=== PATIENT | female | born 1935 | race Caucasian/White ===

== ENCOUNTER 2017-04-30 13:22 | Inpatient (IN) | payer MEDICARE ==
[2017-04-30 14:15] LABS: BASOPHILS 0.2 % (0-2); EOSINOPHILS 0.4 % (0-7); HEMATOCRIT 41.8 % (36.0-48.0); HEMOGLOBIN 13.9 g/dL (12-16); IMMATURE GRANULOCYTES 0.2 % (0-5); LYMPHOCYTES 10.9 % (15-50); MCH 31.8 pg (26.0-34.0); MCHC 33.3 g/dL (31.0-37.0); MCV 95.7 fL (80.0-100.0); MEAN PLATELET VOLUME 9.9 fL (7.4-10.4); NEUTROPHILS 82.3 % (40-80); PLATELET COUNT 242 10x3/uL (130-400); RBC 4.37 10x6/uL (4.00-5.40); RDW 12.9 % (11.5-14.5); WBC 8.1 10x3/uL (4.8-10.8)
[2017-04-30 14:24] LABS: APTT 32.3 SECONDS (22.8-39.4); INR 1.03 (0.85-1.17); PROTIME 13.4 SECONDS (11.6-15.0)
[2017-04-30 14:28] LABS: ALBUMIN 3.5 g/dL (3.4-5.0); ANION GAP 14.9 mmol/L (8-16); BILIRUBIN - TOTAL 0.44 mg/dL (0.2-1.3); CALCIUM 8.8 mg/dL (8.5-10.1); CARBON DIOXIDE 25.8 mmol/L (21.0-32.0); CREATININE - SERUM 0.8 mg/dL (0.6-1.3); POTASSIUM - SERUM 3.7 mmol/L (3.5-5.1); PROTEIN - SERUM 6.8 g/dL (6.4-8.2)
[2017-04-30 15:34] LABS: APPEARANCE CLEAR (CLEAR); BILIRUBIN NEGATIVE (NEGATIVE); COLOR YELLOW (YELLOW); GLUCOSE NEGATIVE (NEGATIVE); KETONE MODERATE mg/dL (NEGATIVE); NITRITE NEGATIVE (NEGATIVE); PROTEIN NEGATIVE (NEGATIVE); UROBILINOGEN NORMAL (NORMAL)
--- NOTE | 2017-04-30 16:00 | NUR ---
TO ROOM 2209 FROM ER VIA STRETCHER.PT WITHOUT DISTRESS.FALL PREVENTION INITIATED,WITH BED ALARM ON AND WORKING.CALL LIGHT IN REACH.DOOR OPEN
--- NOTE | 2017-04-30 16:00 | NUR ---
PATIENT RECEIVED TO FLOOR FROM ER VIA STRETCHER. A/O X4. NO SIGNS OF DISTRESS NOTED. TRANSFERRED TO BED AND POSITIONED FOR COMFORT. ORIENTED TO ROOM. SIDE RAILS UP X2. BED IN LOW POSITION. CALL LIGHT IN REACH. BED ALARM ON. FAMILY PRESENT.
[2017-04-30 16:20] VITALS: BP 167/82
[2017-04-30 17:55] VITALS: BP 167/82; BMI 19.7
[2017-04-30] MEDS ORDERED: PLAVIX75 MG PO (18:30)
[2017-04-30] MEDS ORDERED: LISINOPRIL-HCTZ1 TA2 PO (18:30)
--- NOTE | 2017-04-30 19:25 | NUR ---
PATIENT RESTING IN BED WITH FAMILY AT BEDSIDE. BED IN LOWEST POSITION AND CALL LIGHT WITHIN REACH. ENCOURAGED THE PT TO CALL IF SHE HAS NEEDS.
[2017-04-30 20:00] VITALS: BP 163/83
[2017-05-01] VITALS: BP 167/78
[2017-05-01 04:00] VITALS: BP 170/80
[2017-05-01 08:30] VITALS: BP 187/97
--- NOTE | 2017-05-01 09:05 | NUR ---
REPORT RECEIVED FROM CARLO TAY.
--- NOTE | 2017-05-01 09:40 | NUR ---
ASSESSMENT COMPLETED. ALARM ON. CONSENTS SIGNED AND WITNESSED. CALL LIGHT IN REACH. WILL CONTINUE WITH PLAN OF CARE.
--- NOTE | 2017-05-01 11:16 | NUR ---
PREOP MEDS ADMINISTERED PER ORDER. CALL LIGHT IN REACH.
[2017-05-01 12:12] VITALS: BP 175/69
--- NOTE | 2017-05-01 13:40 | NUR ---
IN OR AT THIS TIME.
[2017-05-01 15:05] VITALS: BP 141/88
--- NOTE | 2017-05-01 15:05 | NUR ---
BACK IN ROOM FROM RECOVERY VIA BED. INCREASED BP. NO PAIN AT THIS TIME. CALL LIGHT IN REACH.
--- NOTE | 2017-05-01 17:00 | NUR ---
IS GIVEN TO PATIENT AND EXPLAINED USE WITH RETURN DEMONSTRATION. SON AT BEDSIDE. CALL LIGHT IN REACH.
--- NOTE | 2017-05-01 18:02 | NUR ---
MORPHINE 2 MG SIVP. SON AT BEDSIDE. BED ALARM ON. CALL LIGHT IN REACH. WILL CONTINUE WITH PLAN OF CARE
[2017-05-02] VITALS: BP 134/74
--- NOTE | 2017-05-02 02:13 | NUR ---
IV WAS BEEPING. PT WOKE UP AND TRIED TO GET OUT OF BED. HIP INCISION BLEEDING. REMOVED SATURATED DRESSING AND APPLIED 4X4'S AND MEPILEX BORDER DRESSING. CHANGED BEDDING AND GOWN. APPLIED NEW LEADS ON TELEMETRY AND DELEON STABILIZER. DELEON CARE DONE. NO OTHER NEEDS. GAVE CALL LIGHT AND REMINDED PT TO CALL FOR ASSISTANCE AND NOT TO GET OUT OF BED. NO OTHER NEEDS. BED LOW. BED ALARM ON.
[2017-05-02 04:00] VITALS: BP 133/64
[2017-05-02 05:09] LABS: BASOPHILS 0 % (0-2); EOSINOPHILS 0 % (0-7); HEMOGLOBIN 10.7 g/dL (12-16); IMMATURE GRANULOCYTES 0.1 % (0-5); LYMPHOCYTES 6.6 % (15-50); MCH 32.1 pg (26.0-34.0); MCHC 34.5 g/dL (31.0-37.0); MEAN PLATELET VOLUME 10.1 fL (7.4-10.4); MONOCYTES 16.8 % (2-11); NEUTROPHILS 76.5 % (40-80); PLATELET COUNT 227 10x3/uL (130-400); RBC 3.33 10x6/uL (4.00-5.40); WBC 8.8 10x3/uL (4.8-10.8)
[2017-05-02 05:10] LABS: MCV 93.1 fL (80.0-100.0)
[2017-05-02 05:17] LABS: ANION GAP 14.1 mmol/L (8-16); CALCIUM 8.2 mg/dL (8.5-10.1); CARBON DIOXIDE 23.9 mmol/L (21.0-32.0); CREATININE - SERUM 0.8 mg/dL (0.6-1.3)
[2017-05-02 07:58] VITALS: BP 132/63
--- NOTE | 2017-05-02 08:30 | NUR ---
AWAKE AND ALERT. ORIENTED X3. NO C/O THIS AM. LUNGS ARE CLEAR BILATERALLY, NO COUGH NOTED. SKIN IS INTACT WITHOUT REDNESS EXCEPT INCISION TO RIGHT HIP WHICH HAS A DRESSING IN PLACE WITH SOME LEAKAGE NOTED OF DARK BLOOD. IV TO LEFT FOREARM IS PATNET WITHOUT REDNESS AT ISNERTION SITE. DENIES NEEDS. DELEON PATENT WITH CLEAR YELLOW URINE. SCD'S IN PLACE.
--- NOTE | 2017-05-02 09:38 | CN ---
PATIENT NAME:GISEL ANGELES MEDICAL RECORD: [id number] : 33 LOCATION:D.[facility] ADMIT DATE: 04/30/17 ACCOUNT: [id number] CONSULTING PHYSICIAN: MATILDA MARTINEZ DO REFERRING PHYSICIAN: SHAHRZAD STOREY MD LEXI DATE OF CONSULTATION: 05/01/2017 HISTORY OF PRESENT ILLNESS: An 82-year-old female. The patient tripped on a curb and fell, had a right femoral neck fracture, is admitted to Dr. Storey. Consult for medical management, hypertension. PAST MEDICAL HISTORY: Significant for CVA, hypertension, coronary artery disease. ALLERGIES: No known drug allergies. The patient has not been seen in the clinic in over a year and a half. She is followed by cardiology, Dr. De Santiago. CURRENT MEDICATIONS: Plavix 75 mg daily, lisinopril/hydrochlorothiazide 10/12.5 one daily. Limited historian due to her past CVA and also is hard of hearing, wears hearing aids. REVIEW OF SYSTEMS: GENERAL: Denies any acute change in weight or appetite. HEENT: Denies cephalgia, visual changes, tinnitus, epistaxis, or dysphagia. CARDIOVASCULAR: Denies chest pain. Denies palpitations. She had an evaluation with Dr. De Santiago in January of this year with no reported abnormalities. PULMONARY: Denies hemoptysis. Denies night sweats. GASTROINTESTINAL: Denies hematemesis, hematochezia, or melena. GENITOURINARY: Denies dysuria. MUSCULOSKELETAL: No acute changes. ENDOCRINE: Denies polyuria, polydipsia, or polyphagia. PHYSICAL EXAMINATION: VITAL SIGNS: Temp 97.9, blood pressure 187/97, heart rate 89, respirations 17, and O2 sats 93% room air. GENERAL: Alert, oriented to person, pain right lower extremity. HEENT: Head is normocephalic, atraumatic. Slight facial droop consistent with remote cerebrovascular accident. Eyes: Pupils equal, round, and reactive. Ears: Canals patent. Nose: Nares patent. Throat: No erythema, no exudates. NECK: Supple. No lymphadenopathy, no JVD. HEART: Regular rate and rhythm. LUNGS: Clear to auscultation bilaterally. Breathing is nonlabored. ABDOMEN: Soft, nontender. Bowel sounds all 4 quadrants. EXTREMITIES: Present times 4, no edema. SKIN: Warm and dry. No rash. MUSCULOSKELETAL: Right femur tenderness. NEUROLOGIC: No appreciable new deficits. LABORATORY DATA AND DIAGNOSTIC STUDIES: X-ray of the right hip 2 views, displaced fracture, right femoral neck. Chest x-ray; emphysematous changes, no acute changes seen. Urinalysis; yellow, clear, specific gravity 1.01, moderate CONSULT REPORT [id number] GISEL ANGELESs. CBC: White count 8.1, hemoglobin 13.9, hematocrit 41.8, platelets 242. PT is 13.4 and INR is 1.03. Sodium 135, potassium 3.7, chloride 98, bicarbonate 25.8, BUN 12, creatinine 0.8. LFTs normal. EKG: Sinus rhythm, rate of 83, nonspecific T-wave changes. Do not have a current EKG for comparison. ASSESSMENT AND PLAN: 1. Right femoral neck fracture, surgery pending. 2. Hypertension. Recommend IV Vasotec until the patient is cleared to resume her medications. 3. Remote cerebrovascular accident. 4. History of coronary artery disease. Resume antiplatelet therapy when cleared by surgery. Supportive care. Thank you for this consult. We will follow accordingly. TRANSINT:[id number] Voice Confirmation ID: [id number] DOCUMENT ID: [id number] MATILDA MARTINEZ DO at 0938 CC: [id number] DICTATION DATE: 05/01/17 1107 SPRAY BLENDER: 05/01/17 1624 ADM IN [facility] [address] [place] [address]
--- NOTE | 2017-05-02 10:00 | NUR ---
DRESSING TO RIGHT HIP SATUATED WITH BLOOD. CONTINOUS OOZE NOTED FROM MIDSECTION OF INCISION LINE. ICE PLACED TO AREA. WILL MONITOR.
--- NOTE | 2017-05-02 11:31 | NUR ---
Name: GISEL ANGELES Admission Status: ER Accout number: [id number] Admission Date: 04-30-2017 : 1933 Admission Diagnosis: Attending: SHAHRZAD STOREY Current LOS: 2 Anticipated DC Date: Planned Disposition: Home Primary Insurance: [employer] CHO[employer] PPO MCR [employer] Discharge Planning Comments: CM met with patient to assess discharge planning needs. Patient states that she is independent with her care at home, where she lives with her son Jose. I attempted to call Jose to get information, but did not get an answer, Patient denies using any DME or HH services, but will need a walker before she is discharged. She might also benefit for a long-term setting till she is strong enough to go home. CM will continue to follow and assist with discharge planning needs. PCP: Carina Jose (son) [phone] Dehydrogenation Converter Helper: Nicole Neff * Is the patient Alert and Oriented? Yes 0 * PCP Carina 0 * Preadmission Environment Home with Family 0 * ADLs Independent 0 * Equipment None 0 * List name and contact numbers for known caregivers / representatives who currently or will assist patient after discharge: Jose (son) [phone] * Additional services required to return to the preadmission environment? Yes 0 * Can the patient safely return to the preadmission environment? Yes 0 * Has this patient been hospitalized within the prior 30 days at any hospital? No
--- NOTE | 2017-05-02 11:45 | NUR ---
PT ATTEMPTED TO GET PATIENT UP TO CHAIR AT BEDSIDE. PATIENT BECAME UNRESPONSIVE. ASSISTED BACK TO BED, MAX. BP 158/80, 96% ON RA. RESPONDED IMMEDIATELY UPON RETURNING TO BED. NO RESIDUAL EFFECTS NOTED. WILL MONITOR.
[2017-05-02 12:07] VITALS: BP 117/55
[2017-05-02 12:58] VITALS: BMI 19.7
[2017-05-02 13:49] LABS: HEMATOCRIT 26.8 % (36.0-48.0); HEMOGLOBIN 9.2 g/dL (12-16); MCH 32.3 pg (26.0-34.0); MCHC 34.3 g/dL (31.0-37.0); MEAN PLATELET VOLUME 10.1 fL (7.4-10.4); RBC 2.85 10x6/uL (4.00-5.40); RDW 13.2 % (11.5-14.5); WBC 9.4 10x3/uL (4.8-10.8)
--- NOTE | 2017-05-02 14:00 | NUR ---
DRESSING CHANGED TO RIGHT HIP. LARGE VOLUMN OF BLOOD OUT. WILL CONTINUE TO MONITOR.
--- NOTE | 2017-05-02 14:42 | OP ---
PATIENT NAME: GISEL ANGELES MEDICAL RECORD: [id number] :33 LOCATION:D.MS [facility]209 ADMISSION DATE:04/30/17 SURGEON: SHAHRZAD STOREY MD DATE OF OPERATION: 05/01/2017 PREOPERATIVE DIAGNOSIS: Displaced right femoral neck fracture. PREOPERATIVE DIAGNOSIS: Displaced right femoral neck fracture. PROCEDURE: Bipolar endoprosthesis for displaced right femoral neck fracture. SURGEON: Shahrzad Storey MD ANESTHESIA: General. INTRAOPERATIVE COMPLICATIONS: None. SUMMARY OF PATHOLOGIC FINDINGS: The patient had displaced right femoral neck fracture consistent with the preoperative diagnosis. OPERATIVE SUMMARY IN DETAIL: After obtaining the appropriate preoperative orthopedic surgery consent as well as anesthetic consultation, evaluation and clearance, the patient was brought to the operating room and placed on the operating table in supine position. After general laryngeal mask airway was administered, the patient was placed in a left lateral decubitus position. All pressure points were well padded to include down leg peroneal pad as well as axillary roll. The patient was held firmly to the operating table using the vacuum pack suction system. Right lower extremity and hip were then prepped and draped in a routine sterile fashion. Curvilinear incision was made over the greater trochanter, taken down along the IT band, which was split in line with fibers of the IT band to reveal gluteus medius and minimus. These were retracted anteriorly and saved for later reapproximation. The hip capsule was cut in a T-type fashion and saved for later reapproximation. Femoral neck cut was made using the Accolade II femoral neck cutting guide. The femoral head was then extracted from the acetabulum. Acetabulum was cleared of all debris. Serial and sequential reaming and broaching were done for a size 5 Accolade II TMZF coated stem. This was put into place. Trials were undertaken with the head. It was thought that the -3 was the most appropriate. A -3 x 43 was then snapped into place and tamped into the Stevenson taper. The hip was reduced. Radiographs were taken that showed good position and placement of the components. Wound was copiously irrigated at this multiple points. Hip capsule was closed with #2 Ethibond. The gluteus medius minimus were reattached back to the greater trochanter in a transosseous fashion using #5 Ethibond. This was then followed by #2 Ethibond closure with the IT band and lastly #1 Vicryl was used for subcutaneous closure. This was followed by skin jen. Sterile dressings were applied. The patient was awakened, taken to recovery room in stable condition. All final needle, instrument and sponge counts were correct. TRANSINT:[id number] Voice Confirmation ID: [id number] DOCUMENT ID: [id number] OPERATIVE REPORT [id number] GISEL ANGELES MD, SHAHRZAD ELLIOTT at 1442 CC: [id number] DICTATION DATE: 05/01/17 1350 TROUBLE LOCATOR TEST DESK: 05/01/17 3184 ADM IN [facility] [address] [id number]
[2017-05-02 16:36] VITALS: BP 122/60
--- NOTE | 2017-05-02 17:00 | NUR ---
SUPPER SERVED IN ROOM. FEEDS SELF BUT ONLY AT ABOUT HALF. DENIES NEEDS. NO CHANGES NOTED.
[2017-05-02 20:00] VITALS: BP 102/51
--- NOTE | 2017-05-02 23:34 | NUR ---
1940) REC'D.IN BED FAMILY AT BEDSIDE.DRSG. DRY AND INTACT TO RIGHT HIP.FOOT WARM GOOD PULSE.REPOSITIONED PILLOW BETWEEN KNEES/FOOT. DELEON PATENT DRAINING YELLOW SLIGHTLY CLOUDY URINE.WILL CONTINUE TO MONITOR FOR ANY CHGES AND FOLLOW CURRENT PLAN OF CARE.
[2017-05-03] VITALS (19 sets, daily range): BP systolic 113–181; BP diastolic 49–76
[2017-05-03 04:16] LABS: BASOPHILS 0.1 % (0-2); EOSINOPHILS 0 % (0-7); HEMATOCRIT 21.5 % (36.0-48.0); IMMATURE GRANULOCYTES 0.2 % (0-5); MCH 32.2 pg (26.0-34.0); MCHC 34.9 g/dL (31.0-37.0); MCV 92.3 fL (80.0-100.0); MONOCYTES 18.9 % (2-11); NEUTROPHILS 69.8 % (40-80); PLATELET COUNT 181 10x3/uL (130-400); RBC 2.33 10x6/uL (4.00-5.40); RDW 13.1 % (11.5-14.5); WBC 9.6 10x3/uL (4.8-10.8)
[2017-05-03 04:28] LABS: HEMOGLOBIN 7.5 g/dL (12-16)
[2017-05-03 04:32] LABS: ANION GAP 10.3 mmol/L (8-16); CALCIUM 7.9 mg/dL (8.5-10.1); CREATININE - SERUM 0.9 mg/dL (0.6-1.3); POTASSIUM - SERUM 4.3 mmol/L (3.5-5.1)
--- NOTE | 2017-05-03 07:47 | NUR ---
AWAKE AND ALERT. ORIENTED X3. DRESSING CHANGED TO RIGHT HIP, SLIGHT PRESSURE APPLIED TO AREA TO CONTAIN BLEEDING. LUNGS WITH CRACKLES NOTED. NO COUGH NOTED. SKIN IS INTACT WITHOUT REDNESS EXCEPT INCISION TO RIGHT HIP WHICH HAS A DRY INTACT DRESSING IN PLACE. SL TO LEFT FOREARM IS PATENT WITHOUT REDNESS AT INSERTION SITE. DELEON PATENT WITH CLEAR YELLOW URINE. AFTER RESETTLED IN BED BECAME UNRESPONSIVE WITH BLANK STARE. DR. MARTINEZ ARRIVED AT THIS TIME. WILL ORDER TRANSFUSION. BP WAS 181/69. PULSE 104. O2 SAT AT 98% O2 APPLIED PRECAUTION. WAS RESPONSIVE WITHIN 1 MINUTE OF INCIDENT. WILL MONITOR.
--- NOTE | 2017-05-03 08:01 | NUR ---
PLEASE DO CXR PORTABLE SINCE PT HAS A HIP FX
--- NOTE | 2017-05-03 08:01 | NUR ---
PLEASE DO THE CXR PORTABLE SINCE THE PT HAS A FEMORAL NECK FX
--- NOTE | 2017-05-03 10:22 | NUR ---
FIRST UNIT PRBC UP AT THIS TIME. VSS.
--- NOTE | 2017-05-03 10:35 | NUR ---
TRANSFUSION CONTINUES WITHOUT COMPLICATIONS. VSS.
--- NOTE | 2017-05-03 11:30 | NUR ---
TRANSFUSION CONTINUES WITHOUT DIFFICULTY. TEMP UP SLIGHTLY WILL MONITOR.
--- NOTE | 2017-05-03 12:15 | NUR ---
TRANSFUSION CONTINUES. TEMP IS GOING DOWN WITH SLOWER RATE OF INFUSION. WILL CONTINUE TO MONITOR.
--- NOTE | 2017-05-03 13:00 | NUR ---
TRANSFUSION COMPLETED WITHOUT DIFFICULTY. PROVENA WOUND VAC PLACED PER KRISTEL MATOS. DENIES NEEDS. ATE ALL OF LUNCH.
--- NOTE | 2017-05-03 13:08 | NUR ---
Wound care: As per Dr. Linda's orders applied a Prevena dressing to incision on right hip attached to Ulta vac pump. Dressing sealed immediately. Settings -125mmhg/mod/continuous Pt tolerated well. Will continue to monitor.
--- NOTE | 2017-05-03 13:15 | NUR ---
TRANSFUSION CONTINUES WITHOUT DIFFICULTY. VSS. TEMP REMAINS WNL. DENIES NEEDS.
--- NOTE | 2017-05-03 13:50 | NUR ---
SECOND UNIT OF PRBC UP AT THIS TIME. VSS.
--- NOTE | 2017-05-03 14:05 | NUR ---
TRANSFUSION CONTINUES WITHOUT COMPLICATIONS. VSS. RESTING QUIETLY INBED WITH EYES CLOSED.
--- NOTE | 2017-05-03 16:30 | NUR ---
TRANSFUSION COMPLETED WITHOUT COMPLICATIONS. VSS. KRISTEL HERE TO LOOK AT PROVENA TO MAKE SURE IT IS FUNCTIONAL.
--- NOTE | 2017-05-03 19:44 | NUR ---
DRSG. RIGHT HIP CONTINUES TO OOZE DK. RED BLOODY DRAINAGE.AWAITING PREVENA DRSG.TO ARRIVE.FOR DRSG. CHGE.FOOT PINK AND WARM PEDAL PULSE PRESENT. DENIES.DECREASE IN SENSATION/CALF PAIN OR TENDERNESS ON DORSIFLEXION.DELEON PATENT DRAINING SL. CLOUDY YELLOW URINE. WILL CONTINUE TO MONITOR FOR ANY CHGES. IN RESP.STATUS AND FOLLOW CURRENT PLAN OF CARE
[2017-05-04] VITALS (13 sets, daily range): BP systolic 106–139; BP diastolic 47–70
--- NOTE | 2017-05-04 00:42 | NUR ---
2015)DRSG. CHGED.CLEANED WITH WOUND CLEANSER PATTED DRY WITH 4X4"S.PREVERA DRSG.PLACED.WITH GOOD SEAL RECONNECTED TO WOUND VAC.CONSTANT TRICKLING OF DK. RED BLOODY DRAINAGE BETWEEN 9TH AND 10TH CLIP DISTAL END OF INCISION UP.REQUIRED ASSIST FROM CNC OPERATOR TRAY UNABLE TO KEEP PATIENT ON LEFT SIDE TO CHGE, DRSG.KEEPS PUSHING BACK PARTIAL BATH LINENS CHGED.PRIOR TO ASSIST FROM MALE CNC OPERATOR. GRAND DTR. STATES DOESN'T WANT MALES OF ANY SORT TAKING CARE OF HER GRANDD MOTHER.INSTRUCTED WILL REPORT TO CHARGE NURSE.
--- NOTE | 2017-05-04 04:57 | NUR ---
PATIENT RESTING WITH EYES CLOSED AND NO VISIBLE SIGNS IF DISTRESS. BED IN LOWEST POSITION, CALL LIGHT WITHIN REACH, AND BED ALARM ON.
[2017-05-04 05:07] LABS: BASOPHILS 0.1 % (0-2); EOSINOPHILS 0.5 % (0-7); HEMATOCRIT 23.3 % (36.0-48.0); HEMOGLOBIN 8.3 g/dL (12-16); IMMATURE GRANULOCYTES 0.4 % (0-5); MCH 29.9 pg (26.0-34.0); MCHC 35.6 g/dL (31.0-37.0); MEAN PLATELET VOLUME 10.5 fL (7.4-10.4); MONOCYTES 16.6 % (2-11); NEUTROPHILS 67.4 % (40-80); PLATELET COUNT 147 10x3/uL (130-400); RBC 2.78 10x6/uL (4.00-5.40); RDW 17.8 % (11.5-14.5)
[2017-05-04 05:08] LABS: MCV 83.8 fL (80.0-100.0)
[2017-05-04 05:24] LABS: CALCIUM 7.5 mg/dL (8.5-10.1); CARBON DIOXIDE 26.1 mmol/L (21.0-32.0); CREATININE - SERUM 0.8 mg/dL (0.6-1.3); POTASSIUM - SERUM 4.1 mmol/L (3.5-5.1)
--- NOTE | 2017-05-04 07:56 | NUR ---
LYING SUPINE WITH OXYGEN ON 2L VIA NC. DRESSING TO RIGHT HIP C/D/I. SCD'S AND BED ALARM ON. CALL LIGHT IN REACH AND IV SITE PATENT. WILL CONTINUE WITH PLAN OF CARE.
--- NOTE | 2017-05-04 09:31 | NUR ---
SCHEDULED MEDICATIONS ADMINISTERED AT THIS TIME WITHOUT DIFFICULTY. SITTING UPRIGHT IN BED EATING BREAKFAST AT THIS TIME. BED ALARM AND SCD'S ON. DRESSING TO RIGHT HIP C/D/I. CALL LIGHT IN REACH, WILL CONTINUE WITH PLAN OF CARE.
--- NOTE | 2017-05-04 09:48 | NUR ---
Prevena dressing was replaced by evening or night nurse supervisor nurse. The dressing is intact and holding its seal at -125mmhg as ordered. Dark red drainage is noted in the canister, but the dressing is not saturated. Wound care will continue to monitor.
--- NOTE | 2017-05-04 11:30 | NUR ---
PT TAKEN TO MRI AT THIS TIME.
--- NOTE | 2017-05-04 12:04 | NUR ---
PRE MEDICATIONS ADMINISTERED FOR ORDERED BLOOD TRANSFUSION PER ORDER.
--- NOTE | 2017-05-04 13:04 | NUR ---
spoke with patient's son Jose to discuss discharge planning. Son stated that she will need to go to rehab before coming home. I went over the choices and he picked the [facility] signed and placed in chart.
--- NOTE | 2017-05-04 13:20 | NUR ---
FIRST UNIT OF PRBC'S INTIATED PER ORDER AT THIS TIME.
--- NOTE | 2017-05-04 16:40 | NUR ---
FIRST UNIT OF PRBC COMPLETE WITH NO COMPLICATIONS AT THIS TIME.
--- NOTE | 2017-05-04 17:00 | NUR ---
IV TO RIGHT FOREARM D/C WITH CATH TIP INTACT DUE TO SWELLING. ICE PACK APPLIED TO RIGHT FOREARM AND ELEVATED ON PILLOW.
--- NOTE | 2017-05-04 17:50 | NUR ---
20MG OF LASIX ADMINISTERED PER ORDERS. SECOND UNIT OF BLOOD INITIATED AT THIS TIME.
--- NOTE | 2017-05-04 19:54 | NUR ---
REC'D. FAMILY AT BEDSIDE.BLOOD COMPLETE.DRSG. REMAINS DRY AND INTACT RIGHT HIP WITH GOOD SEAL.FOOT PINK/WARM GOOD RADIAL PULSE.WIGGLES TOES AND DORSIFLEXES ON COMMAND MORE ALERT THIS PM. WILL CONTINUE TO MONITOR FOR ANY CHGES. IN NEUROVASCULAR STATUS AND FOLLOW CURRENT PLAN OF CARE.
--- NOTE | 2017-05-05 01:14 | NUR ---
PATIENT RESTING QUIETLY WITH EYES CLOSED. NO SIGNS OF DISTRESS NOTED. BED IN LOWEST POSITION, CALL LIGHT IN REACH. BED RIALS UP X'S 2.
[2017-05-05 04:45] LABS: BASOPHILS 0.1 % (0-2); EOSINOPHILS 1.7 % (0-7); IMMATURE GRANULOCYTES 0.7 % (0-5); LYMPHOCYTES 14.9 % (15-50); MCH 30.7 pg (26.0-34.0); MCHC 35.6 g/dL (31.0-37.0); MONOCYTES 13.9 % (2-11); NEUTROPHILS 68.7 % (40-80); PLATELET COUNT 169 10x3/uL (130-400); RDW 15.6 % (11.5-14.5); WBC 8.9 10x3/uL (4.8-10.8)
[2017-05-05 04:49] LABS: HEMATOCRIT 33.4 % (36.0-48.0); HEMOGLOBIN 11.9 g/dL (12-16); MCV 86.1 fL (80.0-100.0); RBC 3.88 10x6/uL (4.00-5.40)
[2017-05-05 05:01] LABS: ANION GAP 11.5 mmol/L (8-16); CALCIUM 7.9 mg/dL (8.5-10.1); CARBON DIOXIDE 28.4 mmol/L (21.0-32.0); CREATININE - SERUM 0.9 mg/dL (0.6-1.3); POTASSIUM - SERUM 3.9 mmol/L (3.5-5.1)
--- NOTE | 2017-05-05 07:50 | NUR ---
LYING ON LEFT SIDE AT THIS TIME WITH RESPIRATIONS EVEN AND NON LABORED. OXYGEN ON 2L VIA NC. BED ALARM AND SCD'S ON. DELEON PATENT AND DRAINING TO GRAVITY. CALL LIGHT IN REACH AND DOOR OPEN. WILL CONTINUE WITH PLAN OF CARE.
[2017-05-05 08:00] VITALS: BP 168/72
--- NOTE | 2017-05-05 10:19 | NUR ---
REHAB PRESCREENING Rehab referral received and chart reviewed. Ms. Torres has [employer] insurance which will require a pre-autorization for Acute Inpatient Rehab. OT has been ordered but has not been completed. Rehab will continue to follow and will begin pre-authorization as soon as OT evaluation is entered. Thank you for this referral! Diane Aguilar, [facility] Rehab Signal Maintainer
[2017-05-05 12:08] VITALS: BP 140/57
--- NOTE | 2017-05-05 12:37 | NUR ---
NUTRITION F/U CHART REVIEWED. PT SLEEPING, DID NOT WAKEN.TOLERATING REG DIET WITH GOOD INTAKE MOST MEALS. NO BM RECORDED SINCE ADMIT. SPOKE WITH NURSING. RD FOLLOWING
--- NOTE | 2017-05-05 13:57 | EC ---
PATIENT:GISEL ANGELES DATE OF SERVICE: 04/30/17 SEX: F MEDICAL RECORD: [id number] DATE OF : 33 LOCATION:[facility] AGE OF PATIENT: 82 ADMISSION DATE: 04/30/17 REFERRING PHYSICIAN: INTERPRETING PHYSICIAN: NIKOLAY MCKENZIE MD ECHOCARDIOGRAM REPORT ECHO CHARGES 4 ECHO COMPLETE CLINICAL DIAGNOSIS: ACS ECHOCARDIOGRAPHIC MEASUREMENTS (adult normal given) AC root (d.<3.7cm) 3.1 cm LV Septum d (<1.2 cm> 1.0 cm Valve Excursion 1.8 cm LV Septum (systole) 1.4 cm Left Atria (s.<4.0cm> 2.8 cm LVPW d(<1.2cm) 0.9 cm RV (d.<2.3cm) 1.9 cm LVPW (sytole) 1.5 cm LV diastole(<5.6CM) 4.5 cm MV E-F(>70mm/sec) cm LV systole 2.7 cm LVOT Diameter 1.4 cm MV exc.(>10mm) cm Est.ejection fraction (50-75%) % Pericardial Effusion N DOPPLER: LVIT cm/sec A 145 cm/sec E 84.0 cm/sec LA cm/sec RVSP 49.0 mmHg LVOT 242 cm/sec AOP1/2T m/s Asc. Ao 281 cm/sec RVOT 149 cm/sec RA cm/sec PA 176 cm/sec AV Gradient Peak 32.0 mmHg AV Mean 18.0 mmHg AV Area 0.9 cm MV Gradient Peak 8.8 mmHg MV Mean 3.3 mmHg MV Area cm COMMENTS: Senior Corporate Recruiter: Jenny WILLETTOE Whip Operator: 3 Dr. Farfan TAPE# PACS DATE OF SERVICE: 05/04/2017 Adequate 2D echo, color flow and spectral Doppler, and M-mode. No LVH. LV internal dimension is normal. Wall motion is normal. EF is greater than or equal to 55%. Aortic valve sclerosis without stenosis by Doppler interrogation. The left atrium is normal at 2.8 cm. Mitral valve showed no prolapse. Trace MR. Right-sided chamber is grossly normal. Mild TR. TRANSINT:[id number] Voice Confirmation ID: [id number] DOCUMENT ID: [id number] ECHOCARDIOGRAM REPORT [id number] GISEL ANGELES Adina NIKOLAY MCKENZIE MD at 1357 CC: [id number] DICTATION DATE: 05/04/17 1256 CLOTH CARRIER: 05/04/17 1311 ADM IN [address] [place] [address]
--- NOTE | 2017-05-05 13:57 | CN ---
PATIENT NAME:GISEL TORRES MEDICAL RECORD: [id number] : 33 LOCATION:D.MS [facility] ADMIT DATE: 04/30/17 ACCOUNT: [id number] CONSULTING PHYSICIAN: NIKOLAY MCKENZIE MD REFERRING PHYSICIAN: SHAHRZAD STOREY MD DATE OF CONSULTATION: 05/03/2017 HISTORY OF PRESENT ILLNESS: Gisel Torres is an 82-year-old female followed by Dr. De Santiago in the clinic with a history of coronary artery disease, status post intervention. She actually saw Dr. De Santiago approximately a month ago, was angina free at that time. She has a history of hypertension, hyperlipidemia, had a fall at home, most history is gathered from the old chart and computer. The patient is hard of hearing. The patient has a history of CVA. She was found to be anemic and had some mental status changes, had elevated cardiac enzymes with elevated troponin. We are asked to see her concerning her cardiovascular status. PAST MEDICAL HISTORY: 1. History of hypertension. 2. Coronary artery disease. 3. Cerebrovascular accident disease, status post cerebrovascular accident. HOME MEDICATIONS: Typical home medications include Plavix 75 q. day, aspirin 81 q. day and lisinopril HCT 10/12.5 q. day. SOCIAL HISTORY: Unobtainable. REVIEW OF SYSTEMS: Unobtainable. ALLERGIES: None known. PHYSICAL EXAMINATION: GENERAL: Pleasant female, in no acute distress. VITAL SIGNS: Blood pressure 181/69, pulse 101 and regular. HEENT: Normocephalic and atraumatic. NECK: No bruits are noted. HEART: Regular, slightly tachy, II/ systolic ejection murmur. LUNGS: Actually fairly good air excursion. ABDOMEN: Soft and nontender. EXTREMITIES: Pulses are preserved, 1+ bilaterally. There is no edema. DIAGNOSTIC DATA: EKG shows normal sinus rhythm without significant ST-T changes. IMPRESSION: Elevated cardiac enzymes in the face hemoglobin 7.5, suspect demand ischemia, re-transfusion given in the perioperative period and previous history of coronary artery disease. We will place on empiric beta blockade as well and check her echocardiographic study to ensure that LV function has remained normal. TRANSINT:[id number] Voice Confirmation ID: [id number] DOCUMENT ID: [id number] CONSULT REPORT [id number] KARTHIKGISEL Adina NIKOLAY MCKENZIE MD at 1357 CC: [id number] DICTATION DATE: 05/03/17 1458 PHYSICAL SCIENTIST: 05/03/17 1626 ADM IN [address] [place] [address]
[2017-05-05 16:23] VITALS: BP 146/60
[2017-05-05 20:00] VITALS: BP 157/60
--- NOTE | 2017-05-05 20:20 | NUR ---
PT AWAKE/ALERT X4. ASSESSMENT COMPLETED AT THIS TIME PER FLOWSHEET. IV LEFT WRIST NS @50 PATENT. PROVERA WOUND VAC TO LEFT HIP DRESSING C/D/I. DELEON TO GRAVITY DRAINAGE. DENIES PAIN STATES "I ONLY NEED THE HOL[employer]IRIT FOR MY PAIN RELIEF." BED ALARM ON, CALL LIGHT IN REACH. WILL CONTINUE TO MONITOR.
--- NOTE | 2017-05-06 07:17 | NUR ---
AWAKE AND ALERT AT THIS TIME. POSITIONED UPRIGHT IN BED. SCD'S OFF PER PT REQUEST. BED ALARM ON AND CALL LIGHT IN REACH. DENIES PAIN AT THIS TIME. LEFT WRIST IV PATENT WITH NO S/S OF INFILTRATION PRESENT. OXYGENATION VIA ROOM AIR. CALL LIGHT IN REACH, WILL CONTINUE WITH PLAN OF CARE.
[2017-05-06 08:18] VITALS: BP 170/76
[2017-05-06] MEDS ORDERED: HCTZ25 MG PO (08:36)
[2017-05-06] MEDS ORDERED: HYDROCODONE-APA1 TAB PO (08:36)
[2017-05-06] MEDS ORDERED: LOPRESSOR25 MG PO (08:36)
[2017-05-06] MEDS ORDERED: ELIQUIS2.5 MG PO (08:36)
[2017-05-06] MEDS ORDERED: COLACE100 MG PO (08:37)
--- NOTE | 2017-05-06 10:10 | NUR ---
DELEON CATHETER D/C WITH CATH TIP INTACT. PT TOLERATED WITHOUT COMPLAINTS.
--- NOTE | 2017-05-06 11:20 | NUR ---
Rehab Note- received call from Deandra with [facility] and stated that there was an open and pending Auth for a SNF stay for [facility] and that it didn't appear the patient had a need for inpatient acute rehab and to proceed with the SNF PreAuth. Notified KELV[facility] of this message. Thank you for this referral! Dilia Rodriguez RN Clinical Liaison, [facility] Rehab
--- NOTE | 2017-05-06 11:30 | NUR ---
HAD SMALL, FORMED BOWEL MOVEMENT AT THIS TIME.
[2017-05-06 11:51] VITALS: BP 164/74
--- NOTE | 2017-05-06 13:50 | NUR ---
VOIDING ON THE BEDPAN WITHOUT DIFFICULTY.
--- NOTE | 2017-05-06 15:45 | NUR ---
PATIENT DISCHARING TODAY TO [facility] GRANDDAUGHTER AT BEDSIDE AND IS AWARE I ATTEMPTED TO CALL SON AND DID NOT GET AN ANSWER. IMM SERVED [facility] WILL SUPERINTENDENT FISH HATCHERY SHE IS GOING TO A SKILLED BED
--- NOTE | 2017-05-06 16:34 | NUR ---
PROVENA VAC APPLIED TO RIGHT HIP AND IV TO LEFT WRIST D/C WITH CATH TIP INTACT. REPORT CALLED TO [facility], , AND CALLED TO [facility]AR[facility]. SON AND GRANDDAUGHTER AT BEDSIDE. WILL AWAIT TRANSPORTATION.
[2017-05-06 17:33] VITALS: BP 141/58
--- NOTE | 2017-05-06 17:51 | NUR ---
DISCHARGED TO THE [facility] AT THIS TIME.
== END 2017-05-06 17:50 | DRG 470 ==
LOC: D.ER 13:22 → D.MS 14:59
PROVIDERS: Family Medicine; Nurse Practitioner Acute Care; ADMIT Orthopaedic Surgery
PROC: 0SRR0JZ Replacement of Right Hip Joint, Femoral Surface with Synthetic Substitute, Open Approach (ICD-10-PCS; principal; 2017-05-01 09:30)
DX: S72.001A Fracture of unspecified part of neck of right femur, initial encounter for closed fracture (principal); D62 Acute posthemorrhagic anemia; E87.1 Hypo-osmolality and hyponatremia; I10 Essential (primary) hypertension; W01.0XXA Fall on same level from slipping, tripping and stumbling without subsequent striking against object, initial encounter; Z86.73 Personal history of transient ischemic attack (TIA), and cerebral infarction without residual deficits; R41.82 Altered mental status, unspecified

== ENCOUNTER → 2018-05-03 12:37 | Outpatient (CLI) | payer MEDICARE ==
[~2018-05-03 12:37] MED LIST: COLACE100 MG PO; ELIQUIS2.5 MG PO; HCTZ25 MG PO; HYDROCODONE-APA1 TAB PO; LISINOPRIL-HCTZ1 TA2 PO; LOPRESSOR25 MG PO; PLAVIX75 MG PO
== END | disposition home or self-care (01) ==
LOC: D.US 12:37
DX: I73.9 Peripheral vascular disease, unspecified (principal)

== ENCOUNTER 2018-05-26 08:32 | Outpatient (CLI) | payer MEDICARE ==
[~2018-05-26] VITALS: Ht 162.6 cm; Wt 54.5 kg
--- NOTE | ~2018-05-26 | OP ---
PATIENT NAME: GISEL ANGELES MEDICAL RECORD: [id number] :33 LOCATION:D.CAT ADMISSION DATE: SURGEON: ADAMS RIBERA MD DATE OF OPERATION: 05/26/2018 PROCEDURES: 1. PTCA stent RCA. 2. Laser atherectomy RCA. 3. Left heart catheterization. 4. Selective coronary angiography. 5. Left ventriculogram. INDICATION: Angina and coronary artery disease. PROCEDURE IN DETAIL: After informed consent was obtained and after a detailed description of the risks, benefits as well as alternative therapies, the patient elected to proceed with angiogram and angioplasty. The right femoral area was prepped and draped in normal sterile fashion. Right femoral artery was cannulated via modified Seldinger technique with placement of 6-Korean sheath. All catheters exchanged through this sheath. FINDINGS: Left ventriculogram was performed in standard 30-degree MARCH view, reveals good cardiac wall motion throughout all segments. Overall ejection fraction estimated at 60%. SELECTIVE CORONARY ANGIOGRAPHY: 1. Left main has 90% stenosis. 2. The left anterior descending has previously placed stents with 95% to 99% in-stent restenosis. 3. Left circumflex has awln-pc-qdcomwiz irregularities, but no flow-limiting stenosis. 4. Right coronary has 95% stenosis in the mid vessel. PTCA STENT OF THE RCA: The lesion was extremely heavily calcified and very difficult to cross. We did use a laser atherectomy. We were then able to cross with a 3-0 balloon. We were able to place 2.25 x 12 [place] stent, post-stent dilatation with a 3-0 balloon to 21 atmospheres. OVERALL IMPRESSION: Successful PTCA stent of the RCA going from 95% initial stenosis to 0% residual. PLAN: For PTCA stent of the left main and LAD in the near future. TRANSINT:[id number] Voice Confirmation ID: [id number] DOCUMENT ID: [id number] ADAMS RIBERA MD at 1031 CC: [id number] DICTATION DATE: 05/26/18 1154 RISK AND INSURANCE MANAGER: 05/26/18 1436 DEP CLI 05/26/18 [place] [address]
--- NOTE | ~2018-05-26 | OP ---
PATIENT NAME: GISEL ANGELES MEDICAL RECORD: [id number] :33 LOCATION:D.CAT ADMISSION DATE: SURGEON: ADAMS RIBERA MD DATE OF OPERATION: 05/26/2018 PROCEDURES: 1. Aortofemoral runoff. 2. Abdominal aortography. INDICATION: Claudication and peripheral vascular disease. PROCEDURE IN DETAIL: After informed consent was obtained and after a detailed description of the risks, benefits as well as alternative therapies, the patient elected to proceed with angiogram and angioplasty. The right femoral area had a preexisting sheath from cardiac intervention. All catheters exchanged through this sheath. FINDINGS: Abdominal aortography was performed. The catheter was pulled down for aortofemoral runoff. Abdominal aortography reveals no significant abdominal aortic disease, no dissection or aneurysm formation. RIGHT LEG: A. Iliac: The common internal and external iliacs are calcified with only mild irregularities, but no flow-limiting stenosis. B. Femoral system: The common and deep femoral are widely patent. Superficial femoral has multiple areas of 80% stenosis throughout the mid distal portion of the vessel. C. Popliteal and infrapopliteal vessels. Popliteal vessel does have a 70% to 80% stenosis in its mid vessel. After this, there is severe diffuse disease of the infrapopliteal vessels. There is somewhat of 2-vessel runoff through the posterior tibial and peroneal. LEFT LEG: A. Iliac: The common internal and external iliacs have mild irregularities, but no flow-limiting stenosis. B. Femoral system: The common and deep femoral are widely patent. Superficial femoral has a total occlusion in the mid distal vessel. This is approximately 100 mm total occlusion. The vessel reconstitutes via collaterals at the level of the mid popliteal. C. Popliteal appears to be patent. After this, there does appear to be 2-vessel runoff to the posterior tibial and peroneal. OVERALL IMPRESSION: 1. 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 2. Multiple areas of 70% to 80% stenosis of the distal SFA and popliteal on the right that are amenable to transcatheter revascularization. TRANSINT:[id number] Voice Confirmation ID: [id number] DOCUMENT ID: [id number] OPERATIVE REPORT [id number] GISEL ANGELES JEFFREY MD at 1031 CC: [id number] DICTATION DATE: 05/26/18 1154 ASSEMBLER FOR PULLER OVER HAND: 05/26/18 1436 DEP CLI 05/26/18 [place] [address] [place] [id number]
--- NOTE | ~2018-05-26 | HEMODYNAMI ---
PATIENT:GISEL ANGELES MEDICAL RECORD: [id number] : 31 LOCATION:D.CAT ADMISSION DATE: 05/26/18 Generatedon:05/26/201811:38 Patient name: GISEL ANGELES Patient #: [id number] SSN: : 1 Date of study: 05/26/2018 Page: Of Hemodynamic Procedure Report Patient Data Patient Demographics Procedure consent was obtained First Name: GISEL Gender: Female Last Name: KARTHIK : 1935 Middle Initial: A Age: 83 year(s) Patient #: [id number] Race: Unknown Additional ID: [id number] Contact details [address]: [address] [place] [address] State: [place] City: [place] Zip code: [address] Past Medical History Allergies: No known allergies Admission Admission Data Admission Date: 05/26/2018 Admission Time: 8:32 Admit Source: Other Procedure Procedure Types Cath Procedure Diagnostic Procedure LHC LHC w/Coronaries Sedation Charges Moderate Sedation up to 45 minutes PCI Procedure Coronary Atherectomy Atherectomy w/PTCA Coronary Initial Peripheral Cath Diagnostic Procedure Grinder Machine Setter Peripheral Procedures Jevrj-Atkjcgq-Pjx-Off Procedure Description Procedure Date Procedure Date: 05/26/2018 Procedure Start Time: 10:41 Procedure End Time: 11:36 Procedure Staff Name Function Santino De Santiago MD Performing Physician Yessenia Gomez RT Monitor Cristian Kiser RT Scrub Radha Joel RN Nurse Fer Woods RN Network Support Technician Procedure Data Cath Procedure Fluoroscopy Diagnostic fluoroscopy Total fluoroscopy Time: time: 15.2 min 15.2 min Diagnostic fluoroscopy Total fluoroscopy dose: 588 dose: 588 mGy mGy Contrast Material Contrast Material Type Amount (ml) Isovue 300 193 Entry Location Entry Primary Successful Side Size Upsize Upsize Entry Closure Succes sful Closure Location (Fr) 1 (Fr) 2 (Fr) Remarks Device Remarks Femoral Right 5 Fr 6 Fr Exoseal artery Short Estimated blood loss: 10 ml Diagnostic catheters Device Type Used For End Catheter Placement MULTIPACK Pigtail 5 Fr Procedure catheter MULTIPACK JL 4.0 5Fr Procedure catheter MULTIPACK 3DRC 5Fr Procedure catheter Procedure Complications No complications Procedure Medications Medication Administration Route Dosage 0.9% NaCl I.V. 100 ml/hr Oxygen etCO2 Nasal cannula 2 l/min Lidocaine 2% added to field 20 Heparin Flush Bag added to field 2 bags (1000units/500ml NS) Versed I.V. 2 mg Fentanyl I.V. 50 mcg Versed I.V. 1 mg Fentanyl I.V. 25 mcg Heparin Bolus I.V. 5000 units Integrilin (Bolus I.V. 5 ml 2mg/ml) Versed I.V. 1 mg Plavix P.O. 600 mg Fentanyl I.V. 25 mcg Nitro [place] S.L. 400 Hemodynamics Rest Heart Rate: 61 (bpm) Snapshots Pre Cath Intra NCS Post Cath Vital Signs Time Heart Resp SPO2 etCO2 NIBP (mmHg) Rhythm Pain Sedation Rate (ipm) (%) (mmHg) Status Level (bpm) 10:20:19 75 12 100 26.5 144/71(117) NSR 0 (11) 10(A) , No pain 10:25:32 61 12 100 21.9 160/78(128) NSR 0 (11) 10(A) , No pain 10:29:50 59 10 100 22.6 158/72(103) NSR 0 (11) 10(A) , No pain 10:35:14 64 11 100 12.1 162/76(118) NSR 0 (11) 10(A) , No pain 10:39:34 61 10 100 12.8 143/70(117) NSR 0 (11) 10(A) , No pain 10:43:46 62 10 100 10.6 145/70(113) NSR 0 (11) 10(A) , No pain 10:47:56 70 11 100 14.3 162/79(124) NSR 0 (11) 10(A) , No pain 10:52:14 68 11 100 15 153/76(112) NSR 0 (11) 10(A) , No pain 10:56:28 69 12 100 18.1 163/75(108) NSR 0 (11) 10(A) , No pain 11:01:45 73 10 100 24.2 165/91(118) NSR 0 (11) 9(A) , No pain 11:07:05 76 15 100 31 199/99(139) NSR 0 (11) 9(A) , No pain 11:11:29 77 10 100 19.6 194/100(153) NSR 0 (11) 9(A) , No pain 11:16:44 75 11 100 34.8 187/107(129) NSR 0 (11) 9(A) , No pain 11:21:04 70 10 100 29.5 186/104(143) NSR 0 (11) 9(A) , No pain 11:25:25 72 10 100 36.3 171/97(115) NSR 0 (11) 9(A) , No pain 11:29:39 75 12 99 32.5 162/94(148) NSR 0 (11) 10(A) , No pain 11:33:51 76 13 99 34 170/102(148) NSR 0 (11) 10(A) , No pain Medications Time Medication Route Dose Verified Delivered Reason Notes Effectiveness by by 10:16:16 0.9% NaCl I.V. 100 Santino Radha used for ml/hr Jonnathan Joel steam blocker 10:19:16 Oxygen etCO2 2 Santino Radha used for Nasal l/min Jonnathan Joel procedure cannula RN 10:19:22 Lidocaine 2% added 20ml Santino Santino for local to vial Jonnathan De Santiago MD anesthetic field 10:19:27 Heparin Flush added 2 Santino Santino used for Bag to bags Jonnathan De Santiago MD procedure (1000units/500ml field NS) 10:28:49 Versed I.V. 2 mg Santino Radha for sedation Jonnathan Joel RN 10:28:54 Fentanyl I.V. 50 Santino Radha for sedation mcg Jonnathan Joel RN 10:33:23 Versed I.V. 1 mg Santino Radha for sedation Jonnathan Joel RN 10:40:05 Fentanyl I.V. 25 Santino Radha for sedation mcg Jonnathan Joel RN 10:49:22 Heparin Bolus I.V. 5000 Santino Radha for verif ied units Jonnathan Joel anticoagulation with Dr. CARLO De Santiago 10:51:33 Integrilin I.V. 5 ml Santino Radha for waste d (Bolus 2mg/ml) Jonnathan Joel anticoagulation 5mL RN 10:56:33 Versed I.V. 1 mg Santino Garcia for sedation Jonnathan Joel RN 10:56:42 Plavix P.O. 600 Santino Garcia for mg Jonnathan Joel antiplatelet RN therapy 11:07:25 Fentanyl I.V. 25 Santino Garcia for sedation mcg Jonnathan Joel RN 11:13:49 Nitro [place] S.L. 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 Start room use. 10:12:58 Time tracking: Regular hours (M-F 7:00 - 5:00) 10:13:02 Plan of Care:Hemodynamics will remain stable., Cardiac rhythm will remain stable., Comfort level will be maintained., Respiratory function will remain adequate., Patient/ family verbilizes understanding of procedure., Procedure tolerated without complication., Recovers from procedure without complications.. 10:13:28 H&P Date Dictated: 05/23/2018 Within 30 days and on chart., H&P Addendum completed by physician on day of procedure. (MUST COMPLETE FOR ALL OUTPATIENTS). 10:16:16 0.9% NaCl 100 ml/hr I.V. was administered by Radha Joel RN; used for procedure; 10:19:07 Vital chart was started 10:19:16 Oxygen 2 l/min etCO2 Nasal cannula was administered by Radha Joel RN; used for procedure; 10:19:22 Lidocaine 2% 20ml vial added to field was administered by Santino De Santiago MD; for local anesthetic; 10:19:27 Heparin Flush Bag (1000units/500ml NS) 2 bags added to field was administered by Santino De Santiago MD; used for procedure; 10:27:05 Patient received from Pre/Post Procedure Room to CCL 1 Alert and oriented. Tansferred to table in Supine position. 10:27:06 Warm blankets applied, and trino hugger turned on for patient comfort. 10:27:06 Correct patient and procedure confirmed by team. 10:27:11 Baseline sample Acquired. 10:27:15 Rhythm: sinus rhythm 10::17 Full Disclosure recording started 10::18 Pre-procedure instructions explained to patient. 10::19 Pre-op teaching completed and patient verbalized understanding. 10::24 Family in patients room. 10::25 Patient NPO since Midnight. 10:27:30 Patient allergic to No known allergies 10:27:33 Is patient on blood thinner?No 10:27:34 Patient diabetic? No. 10::42 Previous problem with sedation/anesthesia? No ? 10:27:44 Snore? No 10:27:45 Sleep apnea? No 10:27:46 Deviated septum? No 10::47 Opens mouth fully? Yes 10::48 Sticks out tongue? Yes 10::49 Airway obstruction? No ? 10::50 Dentures? No ? 10:27:55 Pre procedure: right dorsailis pedis pulse 1+ Palpable, but thready & weak; easily obliterated 10:27:57 Pre procedure: left dorsailis pedis pulse 1+ Palpable, but thready & weak; easily obliterated 10:27:59 Patient pain scale 0/10 ?. 10:28:03 IV patent on arrival in left hand with 0.9% NaCl at [facility]. 10:28:06 Lab results completed and on chart. 10:28:08 Bilateral groins area was prepped with chlora-prep and draped in sterile fashion 10:28:09 Alarms reviewed by R. N. 10:28:09 Sharps counted by scrub and verified by R.N. 10:28:10 --------ALL STOP TIME OUT------ 10:28:10 Final Timeout: patient, procedure, and site verified with staff and physician. All members of the team are in agreement. 10:28:12 Bilateral groins site verified by team. 10:28:14 Physical assessment completed. ASA score P 2 - A patient with mild systemic disease as per Santino De Santiago MD. 10::17 Sedation plan: IV Moderate Sedation Medication:Versed, Fentanyl 10::49 Versed 2 mg I.V. was administered by Radha Joel RN; for sedation; 10::54 Fentanyl 50 mcg I.V. was administered by Radha Wisam RN; for sedation; 10:31:31 Use device set Femoral Dx 10:31:32 ACIST Syringe (98642) opened to sterile field. 10:31:32 Bag Decanter (2002S) opened to sterile field. 10:31:34 ACIST Hand Control (22706) opened to sterile field. 10:31:34 ACIST Manifold (52059) opened to sterile field. 10:31:35 Tegaderm 4 x 4 (1626W) opened to sterile field. 10:31:36 Medline Cath Pack ([id number]) opened to sterile field. 10:31:37 DIAGNOSTIC WIRE .035 260cm J wire (538067) opened to sterile field. 10:31:37 DIAGNOSTIC Multipack 5Fr catheter set (JL6021) opened to sterile field. 10:31:47 SHEATH 5FR Organ (ZWQ059) opened to sterile field. 10:33:23 Versed 1 mg I.V. was administered by Radha Joel RN; for sedation; 10:40:05 Fentanyl 25 mcg I.V. was administered by Radha Joel RN; for sedation; 10:41:10 Zero performed for pressure channel P1 10:41:20 Procedure started. 10:41:34 Local anesthetic to right femoral artery with Lidocaine 2% by Santino De Santiago MD.INITIAL ACCESS ONLY 10:41:54 A 5 Fr sheath was inserted into the Right Femoral artery 10:42:33 A MULTIPACK Pigtail 5 Fr catheter was advanced over the wire and used for Procedure. 10:42:38 LV gram done using MARCH 10:42:40 Injector settings: Ml/sec: 1, Volume: 20, 10:43:05 EF : 60 % 10:43:14 pigtail pulled down for afro 10:43:26 Abdominal angiogram w/ runoff was performed. 10:43:37 Left leg runoff performed. 10:43:53 Right leg runoff performed. 10:44:00 Catheter removed. 10:44:37 A MULTIPACK JL 4.0 5Fr catheter was advanced over the wire and used for Procedure. 10:45:28 LCA angiography performed. 10:46:00 Catheter removed. 10:46:16 A MULTIPACK 3DRC 5Fr catheter was advanced over the wire and used for Procedure. 10:47:03 RCA angiography performed. 10:47:14 Catheter removed. 10:49:07 SHEATH 6FR Organ (JYE382) opened to sterile field. 10:49:22 Heparin Bolus 5000 units I.V. was administered by Radha Joel RN; for anticoagulation; verified with Dr. De Santiago 10:49:24 Sheath upsized to a 6 Fr Short. 10:49:56 GUIDE 6FR AR 1.0 SH catheter ([id number]) opened to sterile field. 10:50:03 6 Fr AR 1 SH guide catheter was inserted over the wire 10:50:11 CHOICE PT Extra Support 182cm wire ([id number]) opened to sterile field. 10:50:51 UNABLE TO ENGAGE 10:51:29 Guide catheter removed. 10:51:33 Integrilin (Bolus 2mg/ml) 5 ml I.V. was administered by Radha Joel RN; for anticoagulation; wasted 5mL 10:51:33 GUIDE 6FR HS II SH catheter ([id number]) opened to sterile field. 10:51:44 6 Fr HS 2 SH guide catheter was inserted over the wire 10:52:16 CHOICE ES 182 wire advanced. 10:53:30 Inflate balloon Inflation number: 1 A EUPHORA 3.0 x 15 Balloon ([id number]) was prepped and advanced across the Mid RCA, then inflated to 13 MABLE for 0:10 (min:sec). 10:53:43 Wire removed. 10:55:23 The TIFFANY RX 3.0 x 22 stent ([id number]) was advanced then removed because of failure to cross lesion 10:56:33 Versed 1 mg I.V. was administered by Radha Joel RN; for sedation; 10:56:42 Plavix 600 mg P.O. was administered by Radha Joel RN; for antiplatelet therapy; 10:56:42 Inflate balloon Inflation number: 2 A EUPHORA 3.0 x 20 Balloon ([id number]) was prepped and advanced across the Mid RCA, then inflated to 13 MABLE for 0:10 (min:sec). 10:57:02 Inflation number: 3 The EUPHORA 3.0 x 20 Balloon ([id number]) was reinflated across the Mid RCA, to 17 MABLE for 0:10 (min:sec). 10:57:27 Inflation number: 4 The EUPHORA 3.0 x 20 Balloon ([id number]) was reinflated across the Mid RCA, to 21 MABLE for 0:10 (min:sec). 10:58:02 Inflation number: 5 The EUPHORA 3.0 x 20 Balloon ([id number]) was reinflated across the Mid RCA, to 21 MABLE for 0:10 (min:sec). 10:58:15 Balloon removed over the wire. 11:01:09 Inflate balloon Inflation number: 6 A WOLVERINE Rx 2.5 x 10 cutting balloon ([id number]) was prepped and advanced across the Mid RCA, then inflated to 13 MABLE for 0:00 (min:sec). 11:02:47 Inflation number: 7 The WOLVERINE Rx 2.5 x 10 cutting balloon ([id number]) was reinflated across the Mid RCA, to 13 MABLE for 0:00 (min:sec). 11:04:02 Balloon removed over the wire. 11:07:25 Fentanyl 25 mcg I.V. was administered by Radha Joel RN; for sedation; 11:07:43 WARMING LASER 11:07:47 LASER ELCA 0.9 Rx atherectomy catheter (715365) opened to sterile field. 11:13:24 LASER CATHETER ADVANACED TO RCA 11:13:49 Nitro [place] 400 mcg x 3 S.L. was administered by Radha Joel RN; for hypertension; 11:13:50 UNABLE ABLE TO PASS MID RCA. CATHETER REMOVED 11:14:30 Inflation number: 8 The EUPHORA 3.0 x 20 Balloon ([id number]) was reinflated across the Mid RCA, to 17 MABLE for 0:10 (min:sec). 11:14:43 Inflation number: 9 The EUPHORA 3.0 x 20 Balloon ([id number]) was reinflated across the Mid RCA, to 17 MABLE for 0:10 (min:sec). 11:15:02 Inflation number: 10 The EUPHORA 3.0 x 20 Balloon ([id number]) was reinflated across the Mid RCA, to 17 MABLE for 0:10 (min:sec). 11:15:17 Balloon removed over the wire. 11:16:14 ELCA CATHETER ADVANCED 11:17:12 Laser pass to mRCA with Fluence of 80 and Rate of 80. 11:18:09 Laser catheter removed. 11:20:48 Inflate balloon Inflation number: 11 A NC EUPHORA 3.0 x 12 balloon ([id number]) was prepped and advanced across the Mid RCA, then inflated to 21 MABLE for 0:10 (min:sec). 11:21:44 Balloon removed over the wire. 11:22:55 CHOICE PT Extra Support 182cm wire (9998490P0) opened to sterile field. 11:23:23 CHOICE ES 182 ADVANCED A GEOVANY WIRE 11:24:22 GEOVANY WIRE USED TO ADVANCE STENT 11:24:40 WIRE REMOVED 11:24:41 Place stent Inflation Number: 12 A TIFFANY RX 2.25 x 12 stent ([id number]) was prepped and advanced across the Mid RCA. The stent was deployed at 23 MABLE for 0:10 (min:sec). 11:24:54 Stent catheter was removed intact over wire. 11:27:21 Wire removed. 11:27:21 Guide catheter removed. 11:27:32 EXOSEAL 6Fr (EX600) opened to sterile field. 11:27:49 INFLATOR Merit BasixCompak (AG2248) opened to sterile field. 11:28:04 Sheath removed intact; hemostasis achieved with Exoseal to the Right Femoral artery. 11:28:27 Procedure ended.(Physican Out) 11:29:07 Fluoroscopy time 15.20 minutes. 11:29:11 Fluoroscopy dose: 588 mGy 11:29:11 Flurop Dose total: 588 11:29:16 Contrast amount:Isovue 300 193ml. 11:29:33 Post-op/insertion site Right Femoral artery dressed using a 4 x 4 and Tegaderm. 11:29:37 Post right femoral artery:stable, soft, clean and dry 11:29:40 Post-procedure physical assessment completed. ASA score P 2 - A patient with mild systemic disease as per Santino De Santiago MD. 11:29:45 Post procedure rhythm: sinus rhythm 11:29:48 Estimated blood loss: 10 ml 11:29:50 Post procedure instruction explained to patient.Patient verbalizes understanding. 11:29:50 Patient needs reinforcement of post procedure teaching. 11:30:32 Procedure type changed to Cath procedure, Diagnostic procedure, LHC, LHC w/Coronaries, Sedation Charges, Moderate Sedation up to 45 minutes, PCI procedure, Coronary Atherectomy, Atherectomy w/PTCA Coronary Initial, Peripheral Cath Diagnostic Procedure, Grinder Machine Setter Peripheral Procedures, Quixb-Epoeqnw-Pyc-Off 11:36:35 Procedure and supply charges have been captured, reviewed, submitted and are correct. 11:36:38 Procedure Complication : No complications 11:36:39 Vital chart was stopped 11:36:40 See physician's report for complete and final results. 11:36:41 Report given to Pre/Post Procedure Room. 11:36:43 Patient transfered to Pre/Post Procedure Room with Bed. 11:36:45 Procedure ended. 11:36:45 Full Disclosure recording stopped 11:36:49 End room use (Document Last) 11:37:46 Laser total pulses delivered: 2263 11:37:51 Laser total treatment time: 0 minutes 28 seconds Intervention Summary Intervention Notes Time ActionType Lesion and Equipment Used Action# Pressure Duration Attributes 10:53:30 Inflate Mid RCA EUPHORA 3.0 x 1 13 00:10 balloon 15 Balloon ([id number]) 10:55:23 Discard TIFFANY RX 3.0 x Stent 22 stent ([id number]) 10:56:42 Inflate Mid RCA EUPHORA 3.0 x 2 13 00:10 balloon 20 Balloon ([id number]) 10:57:02 Reinflate Mid RCA EUPHORA 3.0 x 3 17 00:10 balloon 20 Balloon ([id number]) 10:57:27 Reinflate Mid RCA EUPHORA 3.0 x 4 21 00:10 balloon 20 Balloon ([id number]) 10:58:02 Reinflate Mid RCA EUPHORA 3.0 x 5 21 00:10 balloon 20 Balloon ([id number]) 11:01:09 Inflate Mid RCA WOLVERINE Rx 6 13 00:00 balloon 2.5 x 10 cutting balloon ([id number]) 11:02:47 Reinflate Mid RCA WOLVERINE Rx 7 13 00:00 balloon 2.5 x 10 cutting balloon ([id number]) 11:14:30 Reinflate Mid RCA EUPHORA 3.0 x 8 17 00:10 balloon 20 Balloon ([id number]) 11:14:43 Reinflate Mid RCA EUPHORA 3.0 x 9 17 00:10 balloon 20 Balloon ([id number]) 11:15:02 Reinflate Mid RCA EUPHORA 3.0 x 10 17 00:10 balloon 20 Balloon ([id number]) 11:20:48 Inflate Mid RCA NC EUPHORA 3.0 11 21 00:10 balloon x 12 balloon ([id number]) 11:24:41 Place stent Mid RCA TIFFANY RX 2.25 x 12 23 00:10 12 stent ([id number]) Device Usage Item Name Manufacture Quantity Catalog Number Hospital Part Current Minimal Lot# / Charge Number Stock Stock Serial# Code ACIST Syringe Acist 1 04119 676920 014951 280931 20 (98647) Medical Systems iPowow Bag Decanter Microtek 1 2001S 403209 26348 633046 5 (2001S) Medical Inc. ACIST Hand Acist 1 95821 341465 331493 654840 5 Control Medical (35317) Systems Inc ACIST Manifold Acist 1 83931 394757 100845 618689 5 (91910) Medical Systems Inc Tegaderm 4 x 4 3M 1 1626W 584499 958628 475452 5 (1626W) Medline Cath Medline 1 [id number] 926064 88687 020839 5 Pack ([id number]) DIAGNOSTIC St Sg 1 728049 168921 873640 394736 30 WIRE .035 260cm J wire (648284) DIAGNOSTIC Cardinal 1 RD6579 799446 17990 559853 30 Multipack 5Fr Health catheter set (HR5881) SHEATH 5FR Terumo 1 ZJF210 079894 714350 309149 40 Organ (TGX962) MULTIPACK Cardinal 1 805625 5 Pigtail 5 Fr Health catheter MULTIPACK JL Cardinal 1 200855 5 4.0 5Fr Health catheter MULTIPACK 3DRC Cardinal 1 010253 5 5Fr catheter Health SHEATH 6FR Terumo 1 NHN972 341737 625581 666262 40 Organ (AUD440) GUIDE 6FR AR Medtronic 1 [id number] 104672 02816 195154 1 1.0 SH catheter ([id number]) CHOICE PT [employer] 2 [id number] 160890 068137 782931 5 Extra Support Scientific 182cm wire ([id number]) GUIDE 6FR HS Medtronic 1 [id number] 448800 09101 989387 1 II SH catheter ([id number]) EUPHORA 3.0 x Medtronic 1 [id number] 959106 630585 661129 5 [id number] 15 Balloon ([id number]) TIFFANY RX 3.0 x Medtronic 1 [id number] 850676 7044270 474999 5 [id number] 22 stent ([id number]) EUPHORA 3.0 x Medtronic 1 [id number] 282329 506533 429473 5 [id number] 20 Balloon ([id number]) WOLVERINE Rx [employer] 1 [id number] 528738 0742610 168431 5 [id number] 2.5 x 10 Scientific cutting balloon ([id number]) LASER ELCA 0.9 Saleem 1 110-004 350397 538405 371718 5 Rx atherectomy Healthcare catheter (380094) (677447) NC EUPHORA 3.0 Medtronic 1 [id number] 423603 606961 838006 1 [id number] x 12 balloon ([id number]) TIFFANY RX 2.25 x Medtronic 1 [id number] 708006 4586155 885589 5 [id number] 12 stent ([id number]) EXOSEAL 6Fr Cardinal 1 EX600 664268 665588 761159 10 (EX600) Health INFLATOR Merit Merit 1 VJ8615 547849 824919 732164 15 [facility] ([id number]) Signature Audit [place] Stage Time Signature Unsigned Intra-Procedure 05/26/2018 Yessenia Gomez 11:38:18 AM RT(R) Signatures Monitor : Yessenia Gomez Signature : RT Date : Time : [place] [id number] [place] [address]
[2018-05-26] MEDS ORDERED: BAYER CHEWABLE81 MG PO ×2 (08:49→12:04)
[2018-05-26 09:10] VITALS: BP 158/69; Ht 162.6 cm; Wt 54.5 kg
[2018-05-26 09:24] LABS: BASOPHILS 0.1 % (0-2); EOSINOPHILS 0.4 % (0-7); HEMATOCRIT 41.5 % (36.0-48.0); HEMOGLOBIN 13.9 g/dL (12-16); IMMATURE GRANULOCYTES 0.1 % (0-5); LYMPHOCYTES 18.9 % (15-50); MCH 32.1 pg (26.0-34.0); MCHC 33.5 g/dL (31.0-37.0); MCV 95.8 fL (80.0-100.0); MEAN PLATELET VOLUME 10.3 fL (7.4-10.4); MONOCYTES 8.6 % (2-11); NEUTROPHILS 71.9 % (40-80); PLATELET COUNT 238 10x3/uL (130-400); RBC 4.33 10x6/uL (4.00-5.40); WBC 7.3 10x3/uL (4.8-10.8)
[2018-05-26 09:31] LABS: ANION GAP 13.1 mmol/L (8-16); CALCIUM 8.9 mg/dL (8.5-10.1); CARBON DIOXIDE 26.6 mmol/L (21.0-32.0); CREATININE - SERUM 1.1 mg/dL (0.6-1.3); POTASSIUM - SERUM 3.7 mmol/L (3.5-5.1)
[2018-05-26] MEDS ORDERED: PLAVIX75 MG PO (12:04)
== END 2018-05-26 15:40 | disposition home or self-care (01) ==
LOC: D.CATH 08:32
PROVIDERS: Internal Medicine Interventional Cardiology
DX: I25.119 Atherosclerotic heart disease of native coronary artery with unspecified angina pectoris (principal); T82.855A Stenosis of coronary artery stent, initial encounter; I70.213 Atherosclerosis of native arteries of extremities with intermittent claudication, bilateral legs; I70.92 Chronic total occlusion of artery of the extremities; Z01.812 Encounter for preprocedural laboratory examination

== ENCOUNTER 2018-06-12 09:01 | Outpatient (CLI) | payer MEDICARE ==
[~2018-06-12] VITALS: Ht 162.6 cm; Wt 54.5 kg
--- NOTE | ~2018-06-12 | OP ---
PATIENT NAME: GISEL ANGELES MEDICAL RECORD: [id number] :31 LOCATION:D.CAT ADMISSION DATE: SURGEON: ADAMS RIBERA MD DATE OF OPERATION: 06/12/2018 PROCEDURES: 1. PTCA stent LAD. 2. PTCA stent left main. 3. Selective coronary angiography. INDICATION: Angina and coronary artery disease. PROCEDURE IN DETAIL: After informed consent was obtained and after a detailed description of risks, benefits, as well as alternative therapies, the patient elected to proceed with angiogram and angioplasty. The right femoral area was prepped and draped in normal sterile fashion. Right femoral artery was cannulated via modified Seldinger technique with placement of 6-Cymraes sheath. All catheters exchanged through this sheath. FINDINGS: The left anterior descending is 99% stenosed. This has in-stent restenosis, this was addressed with a 2.5 x 26 mm Vince stent. Result was 0% residual stenosis. The left main is 80% to 90% stenosed. This was addressed with a 3.0 x 12 mm Vince stent taken to 17 atmospheres. Result was 0% residual stenosis. OVERALL IMPRESSION: Successful PTCA stent of the LAD and left main going from 90% to 95% initial stenosis to 0% residual. TRANSINT:[id number] Voice Confirmation ID: [id number] DOCUMENT ID: [id number] ADAMS RIBERA MD at 1704 CC: [id number] DICTATION DATE: 06/12/18 1034 FOREST BOTANY INSTRUCTOR: 06/12/18 1057 DEP CLI 06/12/18 [place] [id number] [place] [id number]
--- NOTE | ~2018-06-12 | HP ---
PATIENT: GISEL TORRES MEDICAL RECORD: [id number] ACCOUNT: [id number] LOCATION:RUBA : 31 ADMISSION DATE: 06/12/18 PCP: MATILDA MARTINEZ DO HISTORY AND PHYSICAL EXAMINATION DIAGNOSES: 1. Angina. 2. Coronary artery disease. 3. Recent percutaneous transluminal coronary angioplasty stent of the right coronary artery with concomitant disease of the left main and left anterior descending. HISTORY OF PRESENT ILLNESS: Ms. Torres presents with unstable anginal symptomatology, found to have critical disease of the left main, LAD, and RCA. Underwent successful PTCA stent of the RCA, is now brought back for PTCA stent of the left main and LAD. PHYSICAL EXAMINATION: GENERAL APPEARANCE: Well-nourished, well-developed, appears stated age. Level of distress, comfortable. PSYCHIATRIC: Mental status, alert, normal affect. Orientation, oriented to time, place and person. EYES: Lids and conjunctiva, noninjected. No discharge, no pallor. ENT: Lips, teeth, gums, normal dentition. Oropharynx, no cyanosis, no pallor. NECK: Carotid arteries, bilateral normal upstroke, no bruits, no thrills. JUGULAR VEINS: No jugular venous pressure or distention. CERVICAL LYMPH NODES: Nontender, nonenlarged. THYROID: Not enlarged. Nontender. No nodules. LUNGS: Respiratory effort, unlabored. CHEST: Normal curvature. No thoracic deformity. No chest wall tenderness. Percussion, resonant. Auscultation, clear. No wheezes, no rales, no rhonchi. CARDIOVASCULAR: Precordial exam, nondisplaced. No heaves or pericardial thrills. Rate and rhythm, regular. Heart sounds, normal S1, normal S2. No S3, no gallop, no rub. Systolic murmur, not heard. Diastolic murmur, not heard. EXTREMITIES: No cyanosis, no edema. Peripheral pulses, full and equal in all extremities, except as noted. No bruits appreciated. ABDOMEN: Soft, nondistended. Normal aorta. No bruit. Nontender. No masses. Liver, nontender, no hepatomegaly. Spleen, nontender, no splenomegaly. MUSCULOSKELETAL: No joint tenderness. No joint swelling. No erythema. NEUROLOGICAL: Normal gait, normal strength, normal tone. SKIN: Warm and dry. OVERALL IMPRESSION: Anginal symptomatology with significant disease on the left. We will proceed with percutaneous transluminal coronary angioplasty stent of the left system. TRANSINT:[id number] Voice Confirmation ID: [id number] DOCUMENT ID: [id number] HISTORY AND PHYSICAL [id number] GISEL TORRES JEFFREY MD at 1704 CC: [id number] DICTATION DATE: 06/12/18 1021 ENGINEERING OFFICER: 06/12/18 1036 DEP CLI 06/12/[address] [address]
--- NOTE | ~2018-06-12 | HEMODYNAMI ---
PATIENT:GISEL ANGELES MEDICAL RECORD: [id number] : 31 LOCATION:D.CAT ADMISSION DATE: 06/12/18 Generatedon:06/12/201810:39 Patient name: GISEL ANGELES Patient #: [id number] SSN: : 1 Date of study: 06/12/2018 Page: Of Hemodynamic Procedure Report Patient Data Patient Demographics Procedure consent was obtained First Name: GISEL Gender: Female Last Name: KARTHIK : 1935 Middle Initial: A Age: 83 year(s) Patient #: [id number] Race: Unknown Additional ID: [id number] Contact details Address: [address] [place] [address] State: [place] City: [place] Zip code: [address] Past Medical History Allergies: No known allergies Admission Admission Data Admission Date: 06/12/2018 Admission Time: 9:01 Lab Results Lab Result Date: 06/12/2018 Lab Result Time: 0:00 Biochemistry Name Units Result Min Max BUN mg/dl 31 --(----)-* 7 18 Creatinine mg/dl 1.2 --(---*)-- 0.6 1.3 CBC Name Units Result Min Max Hemoglobin g/dl 13.6 --(*---)-- 13.5 17.5 Procedure Procedure Types Cath Procedure Diagnostic Procedure Sedation Charges Moderate Sedation up to 15 minutes PCI Procedure Coronary Stent Coronary Stent Initial Coronary Stent Additional Procedure Description Procedure Date Procedure Date: 06/12/2018 Procedure Start Time: 10:25 Procedure End Time: 10:33 Procedure Staff Name Function Santino De Santiago MD Performing Physician Fer Woods RN Director Global Strategic Publisher Sales Yessenia Gomez RT Monitor Santi Milan RT Scrub Radha Joel RN Nurse Procedure Data Cath Procedure Fluoroscopy Diagnostic fluoroscopy Total fluoroscopy Time: 0 time: 0 min min Diagnostic fluoroscopy Total fluoroscopy dose: 74 dose: 74 mGy mGy Contrast Material Contrast Material Type Amount (ml) Isovue 300 51 Entry Location Entry Primary Successful Side Size Upsize Upsize Entry Closure Succes sful Closure Location (Fr) 1 (Fr) 2 (Fr) Remarks Device Remarks Femoral Right 6 Fr Exoseal artery Short Estimated blood loss: 10 ml Procedure Complications No complications Procedure Medications Medication Administration Route Dosage 0.9% NaCl I.V. 100 ml/hr Oxygen etCO2 Nasal cannula 2 l/min Lidocaine 2% added to field 20 Heparin Flush Bag added to field 2 bags (1000units/500ml NS) Versed I.V. 2 mg Fentanyl I.V. 50 mcg Heparin Bolus I.V. 4000 units Versed I.V. 1 mg Hemodynamics Rest HGB: 13.6 (g/dl) Heart Rate: 58 (bpm) Snapshots Pre Cath Intra NCS Post Cath Vital Signs Time Heart Resp SPO2 etCO2 NIBP (mmHg) Rhythm Pain Sedation Rate (ipm) (%) (mmHg) Status Level (bpm) 10:14:34 60 14 98 24 130/69(106) NSR 0 (11) 10(A) , No pain 10:18:41 60 13 100 27.1 137/74(109) NSR 0 (11) 10(A) , No pain 10:22:51 60 16 100 28.3 139/78(107) NSR 0 (11) 10(A) , No pain 10:28:09 63 14 100 21.1 166/72(142) NSR 0 (11) 9(A) , No pain 10:32:25 70 15 100 13.5 180/88(138) NSR 0 (11) 10(A) , No pain Medications Time Medication Route Dose Verified Delivered Reason Notes Effectiveness by by 10:12:45 0.9% NaCl I.V. 100 Santino Radha used for ml/hr Jonnathan Joel administrative underwriter 10:12:54 Oxygen etCO2 2 Santino Radha used for Nasal l/min Jonnathan Joel procedure cannula RN 10:12:59 Lidocaine 2% added 20ml Santino De for local to vial Jonnathan De Santiago MD anesthetic field 10:13:05 Heparin Flush added 2 Santino Santino used for Bag to bags Jonnathan De Santiago MD procedure (1000units/500ml field NS) 10:18:53 Versed I.V. 2 mg Santino Radha for sedation Jonnathan Joel RN 10:19:00 Fentanyl I.V. 50 Santino Radha for sedation mcg Jonnathan Joel RN 10:26:04 Heparin Bolus I.V. 4000 Santino Garcia for verif ied units Jonnathan Joel anticoagulation with Dr. CARLO De Santiago 10:26:25 Versed I.V. 1 mg Santino Garcia for sedation Jonnathan Joel RN Procedure Log Time Note 10:05:52 Fer Woods RN sent for patient. Start room use. 10:06:48 Signed procedure consent form obtained from patient. 10:06:51 Diagnostic Cath status Elective 10:06:52 Time tracking: Regular hours (M-F 7:00 - 5:00) 10:06:56 Plan of Care:Hemodynamics will remain stable., Cardiac rhythm will remain stable., Comfort level will be maintained., Respiratory function will remain adequate., Patient/ family verbilizes understanding of procedure., Procedure tolerated without complication., Recovers from procedure without complications.. 10:12:45 0.9% NaCl 100 ml/hr I.V. was administered by Radha Joel RN; used for procedure; 10:12:54 Oxygen 2 l/min etCO2 Nasal cannula was administered by Radha Joel RN; used for procedure; 10:12:59 Lidocaine 2% 20ml vial added to field was administered by Santino De Santiago MD; for local anesthetic; 10:13:05 Heparin Flush Bag (1000units/500ml NS) 2 bags added to field was administered by Santino De Santiago MD; used for procedure; 10:13:09 Vital chart was started 10:15:37 H&P Date Dictated: 06/12/2018 H&P Addendum completed by physician on day of procedure. (MUST COMPLETE FOR ALL OUTPATIENTS), New H&P dictated by physician.. 10:16:31 Patient received from Pre/Post Procedure Room to CCL 1 Alert and oriented. Tansferred to table in Supine position. 10:16:31 Warm blankets applied, and trino hugger turned on for patient comfort. 10:16:32 Correct patient and procedure confirmed by team. 10:16:32 ECG and BP/O2 sat monitors applied to patient. 10:16:33 Baseline sample Acquired. 10:16:36 Rhythm: sinus bradycardia 10:16:38 Full Disclosure recording started 10:16:42 Pre-procedure instructions explained to patient. 10:16:43 Pre-op teaching completed and patient verbalized understanding. 10:16:44 Family in patients room. 10:16:45 Patient NPO since Midnight. 10:16:52 Patient allergic to No known allergies 10:16:58 Is patient on blood thinner?Yes 10:17:00 ACC The patient was administered the following blood thiners within the last 24 hours: ACCPlavix 10:17:02 Patient diabetic? No. 10:17:10 Previous problem with sedation/anesthesia? No ? 10:17:12 Snore? Yes 10:17:18 Sleep apnea? No 10:17:20 Deviated septum? No 10:17:20 Opens mouth fully? Yes 10:17:22 Sticks out tongue? Yes 10:17:24 Airway obstruction? No ? 10:17:27 Dentures? No ? 10:17:31 Pre procedure: right dorsailis pedis pulse 1+ Palpable, but thready & weak; easily obliterated 10:17:34 Patient pain scale 0/10 ?. 10:17:37 IV patent on arrival in left hand with 0.9% NaCl at [facility]. 10:17:58 Lab Result : BUN 31 mg/dl 10:17:58 Lab Result : Creatinine 1.2 mg/dl 10:17:58 Lab Result : Hemoglobin 13.6 g/dl 10:18:01 Lab results completed and on chart. 10:18:04 Right groin area was prepped with chlora-prep and draped in sterile fashion 10:18:04 Alarms reviewed by R. N. 10:18:05 Sharps counted by scrub and verified by R.N. 10:18:06 --------ALL STOP TIME OUT------ 10:18:06 Final Timeout: patient, procedure, and site verified with staff and physician. All members of the team are in agreement. 10:18:07 Right groin site verified by team. 10:18:10 Physical assessment completed. ASA score P 2 - A patient with mild systemic disease as per Santino De Santiago MD. 10:18:13 Sedation plan: IV Moderate Sedation Medication:Versed, Fentanyl 10:18:53 Versed 2 mg I.V. was administered by Radha Joel RN; for sedation; 10:19:00 Fentanyl 50 mcg I.V. was administered by Radha Joel RN; for sedation; 10::53 Zero performed for pressure channel P1 10::27 Zero performed for pressure channel P1 10::32 Zero performed for pressure channel P1 10::51 Use device set CATH PACK 10:24:52 ACIST Syringe (76815) opened to sterile field. 10:24:53 ACIST Hand Control (44757) opened to sterile field. 10:24:53 ACIST Manifold (85817) opened to sterile field. 10:24:53 Medline Cath Pack (QIVC04756) opened to sterile field. 10:24:54 Bag Decanter (2002S) opened to sterile field. 10:24:54 DIAGNOSTIC WIRE .035 260cm J wire (161604) opened to sterile field. 10:25:16 SHEATH 6FR [place] (YSM712) opened to sterile field. 10:25:16 INFLATOR Merit BasixCompak (TQ1562) opened to sterile field. 10:25:16 CHOICE PT Extra Support 182cm wire ([id number]) opened to sterile field. 10:25:17 GUIDE 6FR EBU 3.0 SH catheter ([id number]) opened to sterile field. 10:25:23 Procedure started. 10:25:28 Local anesthetic to right femoral artery with Lidocaine 2% by Santino De Santiago MD.INITIAL ACCESS ONLY 10:25:35 A 6 Fr Short sheath was inserted into the Right Femoral artery 10:25:52 6 Fr EBU 3 SH guide catheter was inserted over the wire 10:26:04 Heparin Bolus 4000 units I.V. was administered by Radha Joel RN; for anticoagulation; verified with Dr. De Santiago 10:26:25 Versed 1 mg I.V. was administered by Radha Joel RN; for sedation; 10:26:27 CHOICE ES 182 wire advanced. 10:26:30 Wire advanced across lesion. 10:27:22 Inflate balloon Inflation number: 1 A EUPHORA 2.5 x 15 Balloon ([id number]) was prepped and advanced across the Mid LAD, then inflated to 17 MABLE for 0:10 (min:sec). 10:27:32 Inflation number: 2 The EUPHORA 2.5 x 15 Balloon ([id number]) was reinflated across the Mid LAD, to 17 MABLE for 0:10 (min:sec). 10:27:39 Balloon removed over the wire. 10:28:56 Place stent Inflation Number: 3 A TIFFANY RX 2.5 x 26 stent ([id number]) was prepped and advanced across the Mid LAD. The stent was deployed at 13 MABLE for 0:10 (min:sec). 10:29:00 Stent catheter was removed intact over wire. 10:30:17 Place stent Inflation Number: 1 A TIFFANY RX 3.0 x 12 stent ([id number]) was prepped and advanced across the LMCA. The stent was deployed at 17 MABLE for 0:10 (min:sec). 10:30:35 Stent catheter was removed intact over wire. 10:30:39 Wire removed. 10:30:41 Guide catheter removed. 10:30:52 EXOSEAL 6Fr (EX600) opened to sterile field. 10:31:02 Sheath removed intact; hemostasis achieved with Exoseal to the Right Femoral artery. 10:31:05 Procedure ended.(Physican Out) 10:31:45 Contrast amount:Isovue 300 51ml. 10:31:49 Fluoroscopy time 00.00 minutes. 10:31:52 Flurop Dose total: 74 10:31:52 Fluoroscopy dose: 74 mGy 10:31:54 Sharps counted by scrub and verified by R.N. 10:31:58 Post-op/insertion site Right Femoral artery dressed using a 4 x 4 and Tegaderm. 10:32:02 Post right femoral artery:stable, soft, clean and dry 10:32:05 Post-procedure physical assessment completed. ASA score P 2 - A patient with mild systemic disease as per Santino De Santiago MD. 10:32:08 Post procedure rhythm: sinus rhythm 10:32:10 Estimated blood loss: 10 ml 10:32:12 Post procedure instruction explained to patient.Patient verbalizes understanding. 10:32:12 Patient needs reinforcement of post procedure teaching. 10:32:34 Procedure type changed to Cath procedure, Diagnostic procedure, Sedation Charges, Moderate Sedation up to 15 minutes, PCI procedure, Coronary Stent, Coronary Stent Initial, Coronary Stent Additional 10:32:53 Procedure and supply charges have been captured, reviewed, submitted and are correct. 10:33:01 Procedure Complication : No complications 10:33:03 Vital chart was stopped 10:33:04 See physician's report for complete and final results. 10:33:05 Report given to Pre/Post Procedure Room. 10:33:07 Patient transfered to Pre/Post Procedure Room with Bed. 10:33:09 Procedure ended. 10:33:09 Full Disclosure recording stopped 10:33:14 End room use (Document Last) Intervention Summary Intervention Notes Time ActionType Lesion and Equipment Used Action# Pressure Duration Attributes 10:27:22 Inflate Mid LAD EUPHORA 2.5 x 1 17 00:10 balloon 15 Balloon ([id number]) 10:27:32 Reinflate Mid LAD EUPHORA 2.5 x 2 17 00:10 balloon 15 Balloon ([id number]) 10:28:56 Place stent Mid LAD TIFFANY RX 2.5 x 3 13 00:10 26 stent ([id number]) 10:30:17 Place stent LMCA TIFFANY RX 3.0 x 1 17 00:10 12 stent ([id number]) Device Usage Item Name Manufacture Quantity Catalog Number Hospital Part Current M inimal Lot# / Charge Number Stock Stock Serial# Code ACIST Syringe Acist 1 54666 069101 737004 600259 2 0 (11959) Medical Systems Inc ACIST Hand Acist 1 74050 191335 311035 115316 5 Control Medical (74119) Systems Inc ACIST Manifold Acist 1 97735 978723 709723 622028 5 (90981) Medical Systems Inc Medline Cath Medline 1 [id number] 257707 67768 385779 5 Pack ([id number]) Bag Decanter Microtek 1 2001S 056056 14169 183609 5 (2001S) Medical Inc. DIAGNOSTIC St Sg 1 466310 453572 945899 685520 3 0 WIRE .035 260cm J wire (990883) SHEATH 6FR Terumo 1 IMT820 364004 504413 457591 4 0 [place] (HPB780) INFLATOR Merit Merit 1 TD7560 310064 467618 188505 1 5 [employer] (SK6745) CHOICE PT [place] 1 [id number] 774480 867212 668676 5 Extra Support Scientific 182cm wire ([id number]) GUIDE 6FR EBU Medtronic 1 [id number] 549043 33976 957217 0 3.0 SH catheter ([id number]) EUPHORA 2.5 x Medtronic 1 [id number] 332878 298488 609564 5 [id number] 15 Balloon ([id number]) TIFFANY RX 2.5 x Medtronic 1 [id number] 306281 3641291 837355 5 [id number] 26 stent ([id number]) TIFFANY RX 3.0 x Medtronic 1 [id number] 537089 0306047 655066 5 [id number] 12 stent ([id number]) EXOSEAL 6Fr Cardinal 1 EX600 802311 433833 452052 1 0 (EX600) Health Signature Audit [place] Stage Time Signature Unsigned Intra-Procedure 06/12/2018 Yessenia Gomez 10:39:33 AM RT(R) Signatures Monitor : Yessenia Gomez Signature : RT Date : Time : [place] [address] [place] [address]
[~2018-06-12 09:01] MED LIST changes: +BAYER CHEWABLE81 MG PO
[2018-06-12 09:31] VITALS: BP 152/71; Ht 162.6 cm; Wt 54.5 kg
[2018-06-12 09:42] LABS: BASOPHILS 0.5 % (0-2); EOSINOPHILS 2.1 % (0-7); HEMATOCRIT 40.8 % (36.0-48.0); HEMOGLOBIN 13.6 g/dL (12-16); IMMATURE GRANULOCYTES 0.2 % (0-5); LYMPHOCYTES 17.8 % (15-50); MCH 32.1 pg (26.0-34.0); MCHC 33.3 g/dL (31.0-37.0); MCV 96.2 fL (80.0-100.0); MEAN PLATELET VOLUME 9.8 fL (7.4-10.4); MONOCYTES 10.7 % (2-11); NEUTROPHILS 68.7 % (40-80); RBC 4.24 10x6/uL (4.00-5.40); RDW 13.4 % (11.5-14.5); WBC 6.3 10x3/uL (4.8-10.8)
[2018-06-12 09:53] LABS: ANION GAP 11.6 mmol/L (8-16); CALCIUM 9.1 mg/dL (8.5-10.1); CREATININE - SERUM 1.2 mg/dL (0.6-1.3); POTASSIUM - SERUM 3.6 mmol/L (3.5-5.1)
[2018-06-12 09:54] LABS: PLATELET COUNT 322 10x3/uL (130-400)
== END 2018-06-12 15:10 | disposition home or self-care (01) ==
LOC: D.CATH 09:01
PROVIDERS: Internal Medicine Interventional Cardiology
DX: I25.119 Atherosclerotic heart disease of native coronary artery with unspecified angina pectoris (principal)
CPT/HCPCS: 93458; C9600 ×2

== ENCOUNTER 2018-06-26 09:51 | Outpatient (CLI) | payer MEDICARE ==
[~2018-06-26] VITALS: Ht 162.6 cm; Wt 53.6 kg
[2018-06-26] VITALS (17 sets, daily range): BP systolic 101–151; BP diastolic 54–78; Ht 162.6 cm; Wt 53.6 kg
--- NOTE | ~2018-06-26 | HP ---
PATIENT: GISEL TORRES MEDICAL RECORD: [id number] ACCOUNT: [id number] LOCATION:RUBA : 31 ADMISSION DATE: 06/26/18 PCP: MATILDA MARTINEZ DO HISTORY AND PHYSICAL EXAMINATION DIAGNOSES: 1. Claudication. 2. Peripheral vascular disease. 3. Coronary artery disease. 4. Hypertension. 5. Hyperlipidemia. HISTORY OF PRESENT ILLNESS: Mrs. Torres presents with claudication symptomatology. She recently underwent aortofemoral runoff revealing disease of the right lower extremity amenable to transcatheter revascularization. In the left lower extremity, she does have a long area of total occlusion of the SFA, this is questionable if this is amenable to transcatheter revascularization. PHYSICAL EXAMINATION: GENERAL APPEARANCE: Well-nourished, well-developed, appears stated age. Level of distress, comfortable. PSYCHIATRIC: Mental status, alert, normal affect. Orientation, oriented to time, place and person. EYES: Lids and conjunctiva, noninjected. No discharge, no pallor. ENT: Lips, teeth, gums, normal dentition. Oropharynx, no cyanosis, no pallor. NECK: Carotid arteries, bilateral normal upstroke, no bruits, no thrills. JUGULAR VEINS: No jugular venous pressure or distention. CERVICAL LYMPH NODES: Nontender, nonenlarged. THYROID: Not enlarged. Nontender. No nodules. LUNGS: Respiratory effort, unlabored. CHEST: Normal curvature. No thoracic deformity. No chest wall tenderness. Percussion, resonant. Auscultation, clear. No wheezes, no rales, no rhonchi. CARDIOVASCULAR: Precordial exam, nondisplaced. No heaves or pericardial thrills. Rate and rhythm, regular. Heart sounds, normal S1, normal S2. No S3, no gallop, no rub. Systolic murmur, not heard. Diastolic murmur, not heard. EXTREMITIES: No cyanosis, no edema. Peripheral pulses, full and equal in all extremities, except as noted. No bruits appreciated. ABDOMEN: Soft, nondistended. Normal aorta. No bruit. Nontender. No masses. Liver, nontender, no hepatomegaly. Spleen, nontender, no splenomegaly. MUSCULOSKELETAL: No joint tenderness. No joint swelling. No erythema. NEUROLOGICAL: Normal gait, normal strength, normal tone. SKIN: Warm and dry. OVERALL IMPRESSION: Claudication, we will proceed with transcatheter revascularization of the right leg. TRANSINT:[id number] Voice Confirmation ID: [id number] DOCUMENT ID: [id number] HISTORY AND PHYSICAL [id number] GISEL TORRES JEFFREY MD at 1108 CC: [id number] DICTATION DATE: 06/26/18920 SENIOR ART DIRECTOR: 06/26/18939 [facility] [address] [place] [id number]
--- NOTE | ~2018-06-26 | OP ---
PATIENT NAME: GISEL ANGELES MEDICAL RECORD: [id number] :31 LOCATION:D.CAT ADMISSION DATE: SURGEON: ADAMS RIBERA MD DATE OF OPERATION: 06/26/2018 PROCEDURES: 1. Stent placement, popliteal right. 2. SHORTS SIFTER, popliteal right. 3. Unilateral extremity angiography. INDICATION: Claudication and peripheral vascular disease. PROCEDURE IN DETAIL: After informed consent was obtained and after a detailed description of the risks, benefits as well as alternative therapies, the patient elected to proceed with angiogram and angioplasty. The left femoral area was prepped and draped in normal sterile fashion. Left femoral artery was cannulated via modified Seldinger technique with placement of a 6-Swedish ftqszv-aqd-ctor sheath. All catheters exchanged through this sheath. FINDINGS: The popliteal on the right is 90% blocked up. This was addressed with a 5.0 balloon yielding suboptimal result with severe intimal dissection. Stenting was undertaken with a 5 x 80 Cordis SMART stent. Result was 0% residual. IMPRESSION: Successful SHORTS SIFTER stent of the right popliteal going from 90% initial stenosis to 0% residual. TRANSINT:[id number] Voice Confirmation ID: [id number] DOCUMENT ID: [id number] ADAMS RIBERA MD at 1228 CC: [id number] DICTATION DATE: 06/26/18 1229 ASSISTANT CENTER DIRECTOR: 06/26/18 1302 DEP CLI 06/27/[address] [address]
--- NOTE | ~2018-06-26 | HEMODYNAMI ---
PATIENT:GISEL ANGELES MEDICAL RECORD: [id number] : 31 LOCATION:D.CAT ADMISSION DATE: 06/26/18 Generatedon:06/26/201812:36 Patient name: GISEL ANGELES Patient #: [id number] SSN: : 1 Date of study: 06/26/2018 Page: Of Hemodynamic Procedure Report Patient Data Patient Demographics Procedure consent was obtained First Name: GISEL Gender: Female Last Name: KARTHIK : 1935 Middle Initial: A Age: 83 year(s) Patient #: [id number] Race: Unknown Additional ID: [id number] Contact details [address]: [address] [place] [address] State: [place] City: [place] Zip code: [address] Past Medical History Allergies: No known allergies Admission Admission Data Admission Date: 06/26/2018 Admission Time: 9:51 Admit Source: Other Lab Results Lab Result Date: 06/26/2018 Lab Result Time: 0:00 Biochemistry Name Units Result Min Max BUN mg/dl 45 --(----)-* 7 18 Creatinine mg/dl 1 --(--*-)-- 0.6 1.3 CBC Name Units Result Min Max Hemoglobin g/dl 13.4 -*(----)-- 13.5 17.5 Procedure Procedure Types Cath Procedure Peripheral vascular Intervention Angioplasty Angioplasty Fem/Pop Procedure Description Procedure Date Procedure Date: 06/26/2018 Procedure Start Time: 12:13 Procedure End Time: 12:29 Procedure Staff Name Function Santino De Santiago MD Performing Physician Santi Milan RT Monitor Radha Joel RN Nurse Esa Stark RT Scrub Procedure Data Cath Procedure Fluoroscopy Diagnostic fluoroscopy Total fluoroscopy Time: 4.3 time: 4.3 min min Diagnostic fluoroscopy Total fluoroscopy dose: 34 dose: 34 mGy mGy Contrast Material Contrast Material Type Amount (ml) Isovue 300 41 Entry Location Entry Primary Successful Side Size Upsize Upsize Entry Closure Succes sful Closure Location (Fr) 1 (Fr) 2 (Fr) Remarks Device Remarks Femoral Left 6 Fr 6 Fr Exoseal artery Short Long Diagnostic catheters Device Type Used For End Catheter Placement DIAGNOSTIC IMT 5Fr Catheter ([id number]) Procedure Complications No complications Procedure Medications Medication Administration Route Dosage 0.9% NaCl I.V. 100 ml/hr Oxygen etCO2 Nasal cannula 2 l/min Lidocaine 2% added to field 20 Heparin Flush Bag added to field 2 bags (1000units/500ml NS) Versed I.V. 2 mg Fentanyl I.V. 50 mcg Versed I.V. 2 mg Fentanyl I.V. 50 mcg Heparin Bolus I.V. 4000 units Hemodynamics Rest HGB: 13.4 (g/dl) Heart Rate: 62 (bpm) Snapshots Pre Cath Intra NCS Post Cath Vital Signs Time Heart Resp SPO2 etCO2 NIBP (mmHg) Rhythm Pain Sedation Rate (ipm) (%) (mmHg) Status Level (bpm) 11:55:13 58 17 100 22.7 178/79(141) NSR 0 (11) 10(A) , No pain 11:59:16 64 16 100 26.5 161/76(120) NSR 0 (11) 10(A) , No pain 12:03:22 68 16 100 32.5 166/76(101) NSR 0 (11) 10(A) , No pain 12:07:32 58 13 100 34.8 153/74(121) NSR 0 (11) 10(A) , No pain 12:11:42 61 14 100 31.8 158/73(128) NSR 0 (11) 10(A) , No pain 12:15:56 62 13 100 32.6 143/69(117) NSR 0 (11) 10(A) , No pain 12:20:02 67 16 100 31.3 153/77(121) NSR 0 (11) 10(A) , No pain 12:24:12 68 15 100 34.6 141/74(110) NSR 0 (11) 10(A) , No pain 12:28:22 67 8 100 9 141/72(117) NSR 0 (11) 10(A) , No pain Medications Time Medication Route Dose Verified Delivered Reason Notes Effectiveness by by 11:58:39 0.9% NaCl I.V. 100 Santino Garcia used for ml/hr Jonnathan Joel mobile home set up person 11:58:46 Oxygen etCO2 2 Santino Radha used for Nasal l/min Jonnathan Joel procedure cannula RN 11:58:52 Lidocaine 2% added 20ml Santino Santino for local to vial Jonnathan De Santiago MD anesthetic field 11:58:57 Heparin Flush added 2 Santino Santino used for Bag to bags Jonnathan De Santiago MD procedure (1000units/500ml field NS) 12:11:16 Versed I.V. 2 mg Santino Radha for sedation Jonnathan Jole RN 12:11:22 Fentanyl I.V. 50 Santino Radha for sedation mcg Jonnathan Joel RN 12:17:25 Versed I.V. 2 mg Santino Radha for sedation Jonnathan Joel RN 12:17:29 Fentanyl I.V. 50 Santino Radha for sedation mcg Jonnathan Joel RN 12:17:30 Heparin Bolus I.V. 4000 Santino Radha for verif ied units Jonnathan Joel anticoagulation with Dr. CARLO De Santiago Procedure Log Time Note 11:45:22 Admit Source: Other 11:45:50 Diagnostic Cath status Elective 11:45:52 Esa Stark RT(R) sent for patient. Start room use. 11:45:53 Time tracking: Regular hours (M-F 7:00 - 5:00) 11:45:59 Plan of Care:Hemodynamics will remain stable., Cardiac rhythm will remain stable., Comfort level will be maintained., Respiratory function will remain adequate., Patient/ family verbilizes understanding of procedure., Procedure tolerated without complication., Recovers from procedure without complications.. 11:46:05 Patient received from Pre/Post Procedure Room to CCL 1 Alert and oriented. Tansferred to table in Supine position. 11:46:06 Warm blankets applied, and trino hugger turned on for patient comfort. 11:46:07 Correct patient and procedure confirmed by team. 11:46:08 Signed procedure consent form obtained from patient. 11:46:09 ECG and BP/O2 sat monitors applied to patient. 11:53:39 Vital chart was started 11:56:53 Baseline sample Acquired. 11:56:56 Rhythm: sinus rhythm 11:56:57 Full Disclosure recording started 11:58:32 H&P Date Dictated: 06/26/2018 Within 30 days and on chart.. 11:58:34 Pre-procedure instructions explained to patient. 11:58:35 Pre-op teaching completed and patient verbalized understanding. 11:58:39 0.9% NaCl 100 ml/hr I.V. was administered by Radha Joel RN; used for procedure; 11:58:42 Family in waiting room. 11:58:46 Oxygen 2 l/min etCO2 Nasal cannula was administered by Radha Joel RN; used for procedure; 11:58:52 Lidocaine 2% 20ml vial added to field was administered by Santino De Santiago MD; for local anesthetic; 11:58:57 Heparin Flush Bag (1000units/500ml NS) 2 bags added to field was administered by Santino De Santiago MD; used for procedure; 12:00:25 Patient NPO since Midnight. 12:00:34 Patient allergic to No known allergies 12:00:37 Is the patient allergic to Iodine/contrast media? No. 12:00:46 Is patient on blood thinner?No 12:01:08 Patient diabetic? No. 12:02:10 ----Pre-sedation anethsthesia assessment.---- 12:02:13 Previous problem with sedation/anesthesia? No ? 12:02:15 Snore? Yes 12:02:16 Sleep apnea? No 12:02:18 Deviated septum? No 12:02:20 Opens mouth fully? Yes 12:02:21 Sticks out tongue? Yes 12:02:23 Airway obstruction? No ? 12:02:25 Dentures? No ? 12:02:27 Pre procedure: right dorsailis pedis pulse 1+ Palpable, but thready & weak; easily obliterated 12:02:30 Patient pain scale 0/10 ?. 12:02:51 IV patent on arrival in left antecubital with 0.9% NaCl at 10ml/hr. 12:04:33 Lab Result : BUN 45 mg/dl 12:04:34 Lab Result : Hemoglobin 13.4 g/dl 12:04:34 Lab Result : Creatinine 1 mg/dl 12:06:25 SHEATH 6FR Destination (RSR01) opened to sterile field. 12:07:24 GLIDE WIRE Super Stiff Angled 260cm ([id number]) opened to sterile field. 12:07:29 Lab results completed and on chart. 12:07:35 Bilateral groins area was prepped with chlora-prep and draped in sterile fashion 12:07:36 Alarms reviewed by R. N. 12:07:37 Sharps counted by scrub and verified by R.N. 12:07:40 Physician paged 12:09:19 ACIST Syringe (92040) opened to sterile field. 12:09:20 Bag Decanter (2002S) opened to sterile field. 12:09:20 Medline Cath Pack ([id number]) opened to sterile field. 12:09:21 DIAGNOSTIC WIRE .035 260cm J wire (667845) opened to sterile field. 12:09:22 ACIST Hand Control (41695) opened to sterile field. 12:09:23 ACIST Manifold (16679) opened to sterile field. 12:09:25 Tegaderm 4 x 4 (1626W) opened to sterile field. 12:09:40 INFLATOR Merit BasixCompak (MS9914) opened to sterile field. 12::57 --------ALL STOP TIME OUT------ 12::57 Final Timeout: patient, procedure, and site verified with staff and physician. All members of the team are in agreement. 12:09:59 Bilateral groins site verified by team. 12:10:01 Physical assessment completed. ASA score P 2 - A patient with mild systemic disease as per Santino De Santiago MD. 12:10:05 Sedation plan: IV Moderate Sedation Medication:Versed, Fentanyl 12:11:16 Versed 2 mg I.V. was administered by Radha Joel RN; for sedation; ::22 Fentanyl 50 mcg I.V. was administered by Radha Joel RN; for sedation; 12:13:09 Procedure started. 12:13:23 Local anesthetic to left femerol artery with Lidocaine 2% by Santino De Santiago MD.INITIAL ACCESS ONLY 12:13:32 A 6 Fr Short sheath was inserted into the Left Femoral artery 12:13:40 A DIAGNOSTIC IMT 5Fr Catheter ([id number]) was advanced over the wire and used for . 12:13:49 GLIDEWIRE wire advanced. 12:13:51 Sheath upsized to a 6 Fr Long. 12:16:40 Procedure type changed to Cath procedure, Peripheral vascular Intervention, Angioplasty, Angioplasty Fem/Pop 12:17:25 Versed 2 mg I.V. was administered by Radha Joel RN; for sedation; 12:17:27 Wire removed. 12:17:29 Fentanyl 50 mcg I.V. was administered by Radha Joel RN; for sedation; 12:17:30 Heparin Bolus 4000 units I.V. was administered by Radha Joel RN; for anticoagulation; verified with Dr. De Santiago 12:17:31 CPTES wire advanced. 12:18:08 Inflate balloon Inflation number: 1 A SABER 5.0 x 2 x 150 balloon ([id number]) was prepped and advanced across the Proximal Popliteal, Right, then inflated to 9 MABLE for 0:16 (min:sec). 12:18:23 Inflation number: 2 The SABER 5.0 x 2 x 150 balloon ([id number]) was reinflated across the Proximal Popliteal, Right, to 9 MABLE for 0:11 (min:sec). 12:19:24 Balloon removed over the wire. 12:20:45 SMART Flex 5 X 80 X 120 stent ([id number]) was deployed across Proximal Popliteal, Right . 12:20:47 Stent catheter was removed intact over wire. 12:21:31 Inflation number: 3 The SABER 5.0 x 2 x 150 balloon ([id number]) was reinflated across the Proximal Popliteal, Right, to 13 MABLE for 0:10 (min:sec). 12:21:40 Inflation number: 4 The SABER 5.0 x 2 x 150 balloon ([id number]) was reinflated across the Proximal Popliteal, Right, to 13 MABLE for 0:08 (min:sec). 12:24:58 Balloon removed over the wire. 12:24:58 Wire removed. 12:26:43 Sheath removed intact; hemostasis achieved with Exoseal to the Left Femoral artery. 12:26:44 Procedure ended.(Physican Out) 12::57 Fluoroscopy time 04.30 minutes. 12:27:03 Fluoroscopy dose: 34 mGy 12:27:03 Flurop Dose total: 34 12:27:26 Contrast amount:Isovue 300 41ml. 12:27:29 Sharps counted by scrub and verified by R.N. 12:27:33 Insertion/operative site no bleeding no hematoma. 12:27:36 Post-op/insertion site Left Femoral artery dressed using a 4 x 4 and Tegaderm. 12:27:42 Post left femerol artery:stable 12::44 Post Procedure Pulses reassessed and unchanged 12::53 Post procedure: left posterior tibial pulse 1+ Palpable, but thready & weak; easily obliterated. 12:27:58 Post procedure rhythm: sinus rhythm 12:28:03 Post procedure instruction explained to patient.Patient verbalizes understanding. 12::50 Procedure and supply charges have been captured, reviewed, submitted and are correct. 12:29:02 EXOSEAL 6Fr (EX600) opened to sterile field. 12::38 Procedure Complication : No complications 12::40 Vital chart was stopped 12::41 See physician's report for complete and final results. 12::45 Report given to Pre/Post Procedure Room. 12::49 Patient transfered to Pre/Post Procedure Room with Stretcher. 12::51 Procedure ended. 12::51 Full Disclosure recording stopped 12::55 End room use (Document Last) 12:34:52 End room use (Document Last) Intervention Summary Intervention Notes Time ActionType Lesion and Equipment Action# Pressure Duration Attributes Used 12:18:08 Inflate Proximal SABER 5.0 x 1 9 00:16 balloon Popliteal, 2 x 150 Right balloon ([id number]) 12:18:23 Reinflate Proximal SABER 5.0 x 2 9 00:11 balloon Popliteal, 2 x 150 Right balloon ([id number]) 12:20:45 Deploy self Proximal SMART Flex 1 expanding Popliteal, 5 X 80 X stent Right 120 stent ([id number]) 12:21:31 Reinflate Proximal SABER 5.0 x 3 13 00:10 balloon Popliteal, 2 x 150 Right balloon ([id number]) 12:21:40 Reinflate Proximal SABER 5.0 x 4 13 00:08 balloon Popliteal, 2 x 150 Right balloon ([id number]) Device Usage Item Name Manufacture Quantity Catalog Number Hospital Part Current Minim al Lot# / Charge Number Stock Stock Serial# Code SHEATH 6FR Terumo 1 [id number] [id number] [id number] 5 Destination (RSR01) GLIDE WIRE Terumo 1 UT1119 074852 780912 718944 5 Super Stiff Angled 260cm (JL4989) ACIST Acist 1 86130 172524 462873 889287 20 Syringe Medical (17150) Systems Inc Bag Microtek 1 2001S 804145 12853 186031 5 Decanter Medical Inc. () Medline Medline 1 [id number] 421079 41682 879357 5 Cath Pack ([id number]) DIAGNOSTIC St Sg 1 944579 740742 434137 781239 30 WIRE .035 260cm J wire (236987) ACIST Hand Acist 1 36700 731456 607500 954405 5 Control Medical (33096) Systems Inc ACIST Acist 1 18688 124229 180049 391459 5 Manifold Medical (80434) Systems Inc Tegaderm 4 3M 1 1626W 417777 020880 805106 5 x 4 (1626W) INFLATOR Merit 1 RH1370 385103 111790 330963 15 [facility] Medical BasixCompak (ZE7690) SABER 5.0 x Cardinal 1 [id number] 909082 496401 5 2 x 150 Health balloon ([id number]) DIAGNOSTIC [place] 1 [id number] 393237 414954 69500 5 IMT 5Fr Scientific Catheter ([id number]) SMART Flex Cardinal 1 [id number] 870844 157171 0 92334 5 X 80 X Health 120 stent ([id number]) EXOSEAL 6Fr Cardinal 1 EX600 264809 499301 264069 10 (EX600) Health Signature Audit [place] Stage Time Signature Unsigned Intra-Procedure 06/26/2018 Santi Milan RT(R) 12:36:20 PM Signatures Monitor : Santi Milan RT Signature : Date : Time : [facility] [address] [facility], [place] [address]
[2018-06-26 10:41] LABS: BASOPHILS 0.5 % (0-2); HEMATOCRIT 40.7 % (36.0-48.0); HEMOGLOBIN 13.4 g/dL (12-16); IMMATURE GRANULOCYTES 0.3 % (0-5); LYMPHOCYTES 19.5 % (15-50); MCH 31.8 pg (26.0-34.0); MCHC 32.9 g/dL (31.0-37.0); MCV 96.4 fL (80.0-100.0); MEAN PLATELET VOLUME 10.4 fL (7.4-10.4); MONOCYTES 9.5 % (2-11); NEUTROPHILS 68.2 % (40-80); PLATELET COUNT 296 10x3/uL (130-400); RBC 4.22 10x6/uL (4.00-5.40); RDW 13.4 % (11.5-14.5); WBC 6.5 10x3/uL (4.8-10.8)
[2018-06-26 10:49] LABS: ANION GAP 12.5 mmol/L (8-16); CALCIUM 8.8 mg/dL (8.5-10.1); CARBON DIOXIDE 28.2 mmol/L (21.0-32.0); POTASSIUM - SERUM 3.7 mmol/L (3.5-5.1)
[2018-06-26 15:24] LABS: HEMATOCRIT 33.5 % (36.0-48.0); HEMOGLOBIN 10.9 g/dL (12-16)
[2018-06-27] VITALS (12 sets, daily range): BP systolic 99–122; BP diastolic 52–86
== END 2018-06-27 10:28 | disposition home or self-care (01) ==
LOC: D.CATH 09:51 → D.CVICU 15:07 → D.CATH 06-27 10:28
PROVIDERS: Internal Medicine Interventional Cardiology
DX: I70.211 Atherosclerosis of native arteries of extremities with intermittent claudication, right leg (principal); I25.10 Atherosclerotic heart disease of native coronary artery without angina pectoris; I10 Essential (primary) hypertension; E78.5 Hyperlipidemia, unspecified; Z01.812 Encounter for preprocedural laboratory examination

== ENCOUNTER 2019-07-15 06:49 | Emergency (ER) | payer MEDICARE ==
[~2019-07-15] VITALS: Ht 162.6 cm; Wt 45.5 kg
[2019-07-15 06:55] VITALS: Ht 162.6 cm; Wt 45.5 kg
[2019-07-15 07:23] LABS: BASOPHILS 0.3 % (0-2); EOSINOPHILS 1.4 % (0-7); HEMATOCRIT 44.7 % (36.0-48.0); HEMOGLOBIN 14.5 g/dL (12-16); IMMATURE GRANULOCYTES 0.3 % (0-5); LYMPHOCYTES 38.2 % (15-50); MCH 31.6 pg (26.0-34.0); MCHC 32.4 g/dL (31.0-37.0); MCV 97.4 fL (80.0-100.0); MEAN PLATELET VOLUME 10.4 fL (7.4-10.4); MONOCYTES 7.8 % (2-11); PLATELET COUNT 244 10x3/uL (130-400); RBC 4.59 10x6/uL (4.00-5.40); RDW 13.5 % (11.5-14.5); WBC 7.3 10x3/uL (4.8-10.8)
[2019-07-15 07:26] LABS: APPEARANCE CLEAR (CLEAR); BILIRUBIN NEGATIVE (NEGATIVE); COLOR TAN (YELLOW); GLUCOSE NEGATIVE (NEGATIVE); KETONE NEGATIVE (NEGATIVE); NITRITE NEGATIVE (NEGATIVE); PROTEIN NEGATIVE (NEGATIVE); UROBILINOGEN NORMAL (NORMAL)
[2019-07-15 07:28] LABS: BACTERIA FEW /hpf (NEGATIVE); EPITHELIAL CELLS 0-5 /hpf (0-5); RED CELLS - URINE NONE SEEN /hpf (0-5)
[2019-07-15 07:31] LABS: CALC OSMOLALITY 288 mosm/kg (275-300); CALCIUM 9.2 mg/dL (8.5-10.1); CARBON DIOXIDE 28.7 mmol/L (21.0-32.0); CHLORIDE - SERUM 104 mmol/L (98-107); CREATININE - SERUM 1.1 mg/dL (0.6-1.3); GLUCOSE 101 mg/dL (74-106); POTASSIUM - SERUM 4.2 mmol/L (3.5-5.1); SODIUM 141 mmol/L (136-145); UREA NITROGEN 35 mg/dL (7-18); eGFR NON AFRICAN AMERICAN 50 mL/min (90-120)
[2019-07-15 07:43] LABS: APTT 33.5 SECONDS (22.8-39.4); INR 0.97 (0.85-1.17); PROTIME 12.4 SECONDS (11.6-15.0)
[2019-07-15 07:48] LABS: ALBUMIN 3.7 g/dL (3.4-5.0); ALKALINE PHOSPHATASE 89 U/L (46-116); ALT (SGPT) 19 U/L (10-68); AMYLASE - SERUM 94 U/L (25-115); BILIRUBIN - TOTAL 0.45 mg/dL (0.2-1.3); CKMB 0.6 U/L (0.0-3.6); CREATINE KINASE 57 UL (21-215); LIPASE 252 U/L (73-393); PROTEIN - SERUM 7.7 g/dL (6.4-8.2)
[2019-07-15 07:55] LABS: TROPONIN-I < 0.017 ng/mL (0.000-0.060)
[2019-07-15 12:42] VITALS: BP 148/72
== END 2019-07-15 12:43 | disposition home or self-care (01) ==
LOC: D.ER 06:49
PROVIDERS: Family Medicine
DX: N39.0 Urinary tract infection, site not specified (principal); I10 Essential (primary) hypertension; K59.9 Functional intestinal disorder, unspecified; Z86.73 Personal history of transient ischemic attack (TIA), and cerebral infarction without residual deficits; I25.10 Atherosclerotic heart disease of native coronary artery without angina pectoris; I73.9 Peripheral vascular disease, unspecified